=== PATIENT | female | born 1985 | race Caucasian/White ===

== ENCOUNTER 2020-06-28 10:15 | Emergency (ER) | payer OTHER, SELFPAY ==
[2020-06-28 10:30] VITALS: BP 159/108; PULSE 102; RESP 18; TEMP 37.4; O2SAT 100
--- NOTE | 2020-06-28 10:49 | ED.URI ---
HPI - URI/Sore Throat General Chief Complaint: Upper Respiratory Infection Stated Complaint: sinus infection Source: patient Mode of arrival: ambulatory Limitations: no limitations History of Present Illness HPI Narrative: Patient is a 35-year-old female who presents complaining of sinus pain and pressure x10 days, cough and congestion. Patient has a history of lupus. Patient reports that she is currently taking steroids. She reports trying multiple [id number] medications with limited relief. Patient currently takes daily allergy medication as well. She denies known exposure to Covid, and has no concerns at this time. MD elicited complaint: cough, nasal congestion and sinus pain Related Data Home Medications Medication Instructions Recorded Confirmed azathioprine 50 mg PO DAILY 06/28/20 06/28/20 hydroxychloroquine 200 mg PO BID 06/28/20 06/28/20 levothyroxine 50 mcg PO DAILY 06/28/20 06/28/20 prednisone 10 mg PO DAILY 06/28/20 06/28/20 Allergies Allergy/AdvReac Type Severity Reaction Status Date / Time cephalexin [From Keflex] Allergy Unknown Verified 06/28/20 10:54 codeine Allergy Unknown Verified 06/28/20 10:55 levofloxacin [From Levaquin] Allergy Unknown Verified 06/28/20 10:55 tramadol Allergy Unknown Verified 06/28/20 10:55 vancomycin Allergy Unknown Verified 06/28/20 10:56 Review of Systems Review of Systems: Narrative: CONSTITUTIONAL: Denies fever, chills, or sweats. EYES: Denies visual changes, redness, or discharge. ENT: Reports rhinorrhea, congestion and facial pressure CARDIOVASCULAR: Denies chest pain, palpitations, or edema. RESPIRATORY: Reports cough, denies dyspnea. GASTROINTESTINAL: Denies abdominal pain, nausea, vomiting, or diarrhea. GENITOURINARY: Denies dysuria or hematuria. SKIN: Denies rash or itching. MUSCULOSKELETAL: Denies back pain, joint pain, or myalgia. NEUROLOGIC: Denies headache, numbness, dizziness, or weakness. PSYCHIATRIC: Denies anxiety or depression. [facility] Past Medical History Medical History (Updated 06/28/20 @ 11:02 by TRISTAN Cruz) Breast mass Hypothyroidism Lupus Surgical History Surgical History (Updated 06/28/20 @ 10:52 by TRISTAN Cruz) H/O bilateral mastectomy Social History Social History (Updated 06/28/20 @ 10:53 by TRISTAN Cruz) Smoking status: Never smoker Substance use: never Living arrangements: with family Occupation/Education: occupation Gender identity (if verbalized by the patient): Female Comments At the time of signature, I have reviewed and agree with nursing past medical, surgical, social, and family history unless otherwise noted. Please see nursing chart for further information. There is no relevant family history pertinent to the presenting complaint. Exam Narrative: Exam Narrative: GENERAL: Well-appearing, well-nourished, and in no acute distress. HEAD: Normocephalic, atraumatic. EYES: EOMI. No redness or drainage. Conjunctiva are normal. ENT: Mucous membranes pink and moist. Nares clear. No rhinorrhea. Frontal and maxillary sinus tenderness with palpation. Throat with mild erythema. Uvula midline. NECK: AROM. Supple. No lymphadenopathy. CHEST: No respiratory distress. Clear to auscultation. HEART: Regular rate and rhythm. No murmur appreciated. Normal peripheral pulses. EXTREMITIES: Normal range of motion. No edema. SKIN: Warm, dry, no rash. NEURO: No focal deficits. Alert and oriented x3. Gait steady. PSYCH: Normal affect. No signs of depression or anxiety. Course Vital Signs Vital signs: Vital Signs Temperature 37.4 C 06/28/20 10:30 Pulse Rate 102 H 06/28/20 10:30 Respiratory Rate 18 06/28/20 10:30 Blood Pressure 159/108 H 06/28/20 10:30 Pulse Oximetry 100 06/28/20 10:30 Temperature 37.4 C 06/28/20 10:30 Pulse Rate 102 H 06/28/20 10:30 Respiratory Rate 18 06/28/20 10:30 Blood Pressure 159/108 H 06/28/20 10:30 Pulse Oximetry 100 06/28/
== END 2020-06-28 11:05 | disposition home or self-care (01) ==
PROVIDERS: Emergency Provider Nurse Practitioner; PCP Internal Medicine
DX: J32.9 Chronic sinusitis, unspecified (principal); J06.9 Acute upper respiratory infection, unspecified; E03.9 Hypothyroidism, unspecified; M32.9 Systemic lupus erythematosus, unspecified; Z90.13 Acquired absence of bilateral breasts and nipples
CPT/HCPCS: 99213; G0463

== ENCOUNTER 2020-07-16 11:55 | Emergency (ER) | payer OTHER, SELFPAY ==
--- NOTE | 2020-07-16 11:59 | ED.NECK ---
HPI - Neck Pain/Injury General Chief Complaint: Neck Pain/Injury Stated Complaint: neck pain Time Seen by Provider: 07/16/20 11:59 Source: patient and RN notes reviewed History of Present Illness HPI Narrative: Patient is a 35-year-old female who presents the urgent care with complaints of right-sided neck pain. Patient states that she had an upper respiratory infection approximately 3 weeks ago and was told to follow-up if she experienced any neck pain . Patient states that the URI has subsided however after sleeping upright on a bunch of pillows, she believes she has a kink in her neck. Patient states that she has been taking ibuprofen and Tylenol without much relief. No other acute complaints. Denies any fevers. No acute distress noted. Patient aware of the plan of care. Some parts of this dictation were generated by voice recognition software and may contain typographical and/or grammatical inaccuracies. Related Data Home Medications Medication Instructions Recorded Confirmed azathioprine 50 mg PO DAILY 06/28/20 07/16/20 hydroxychloroquine 200 mg PO BID 06/28/20 07/16/20 celecoxib 200 mg PO BID 07/16/20 07/16/20 levothyroxine [Synthroid] 50 mcg PO DAILY 07/16/20 07/16/20 Allergies Allergy/AdvReac Type Severity Reaction Status Date / Time cephalexin [From Keflex] Allergy Severe Rash Verified 07/16/20 12:15 codeine Allergy Severe Rash Verified 07/16/20 12:15 levofloxacin [From Levaquin] Allergy Severe Rash Verified 07/16/20 12:15 vancomycin Allergy Severe Unknown Verified 07/16/20 12:15 tramadol AdvReac Mild Nausea and Verified 07/16/20 12:15 Vomiting Review of Systems Review of Systems: Narrative: CONSTITUTIONAL: Denies fever, chills, or sweats. EYES: Denies visual changes, redness, or discharge. ENT: Denies rhinorrhea, congestion, sore throat, or otalgia. CARDIOVASCULAR: Denies chest pain, palpitations, or edema. RESPIRATORY: Denies cough or dyspnea. GASTROINTESTINAL: Denies abdominal pain, nausea, vomiting, or diarrhea. GENITOURINARY: Denies dysuria or hematuria. SKIN: Denies rash or itching. MUSCULOSKELETAL: Reports of right-sided neck pain NEUROLOGIC: Denies headache, numbness, or weakness. All other systems reviewed are negative, except as documented in HPI. [facility] Past Medical History Medical History (Updated 07/16/20 @ 12:28 by TRISTAN Ha) Breast mass Hypothyroidism Lupus Surgical History Surgical History (Updated 06/28/20 @ 10:52 by TRISTAN Cruz) H/O bilateral mastectomy Social History Social History (Updated 06/28/20 @ 10:53 by TRISTAN Cruz) Smoking status: Never smoker Substance use: never Gender identity (if verbalized by the patient): Female Comments At the time of my signature, I reviewed and agree with the nursing past medical, surgical, social, and family history. There is no relevant family history pertinent to the patient complaint. Exam Narrative: Exam Narrative: GENERAL: This is a well-nourished, well-developed patient, in no apparent distress. HEAD: normocephalic, atraumatic. EYES: PERRL. Sclera clear/white. Vision is grossly intact. EARS: External ears normal NOSE: External nose normal with no obvious nasal discharge, nares without redness, no rhinorrhea. THROAT: Mucous membranes moist NECK: Mild right-sided cervical tenderness. Left flexion exacerbates pain. Normal head lift, chin tuck, right flexion. Non-tender without lymphadenopathy, masses or thyromegaly. SKIN: warm, intact with no suspicious lesions or rash, good texture and turgor. NEURO: awake, alert, and oriented to person, place and time. There were no obvious focal neurologic abnormalities. EXTREMITIES: No clubbing, cyanosis, or edema. Course Vital Signs Vital signs: Vital Signs Temperature 99.2 F 07/16/20 12:01 Pulse Rate 92 07/16/20 12:01 Respiratory Rate 20 07/16/20 12:01 Blood Pressure 161/106 H 07/16/20 12:01 Pulse Oximetry 100 07/16/20 12:01
[2020-07-16 12:01] VITALS: BP 161/106; PULSE 92; RESP 20; TEMP 37.3; O2SAT 100
[2020-07-16 12:30] VITALS: BP 162/102
== END 2020-07-16 12:30 | disposition home or self-care (01) ==
PROVIDERS: Emergency Provider Nurse Practitioner Family
DX: S16.1XXA Strain of muscle, fascia and tendon at neck level, initial encounter (principal); X58.XXXA Exposure to other specified factors, initial encounter; E03.9 Hypothyroidism, unspecified; Z90.13 Acquired absence of bilateral breasts and nipples; M32.9 Systemic lupus erythematosus, unspecified
CPT/HCPCS: 99213; G0463

== ENCOUNTER 2020-08-09 11:07 | Emergency (ER) | payer OTHER, SELFPAY ==
[2020-08-09 11:14] VITALS: BP 152/104; PULSE 78; RESP 16; TEMP 36.9; O2SAT 100
--- NOTE | 2020-08-09 11:32 | ED.URI ---
HPI - URI/Sore Throat General Chief Complaint: Upper Respiratory Infection Stated Complaint: Possible sinus infection Time Seen by Provider: 08/09/20 11:30 Source: patient Mode of arrival: ambulatory Limitations: no limitations History of Present Illness HPI Narrative: Yue Gardner is a 35 yo female with PMH of lupus, hypothyroid, who comes to express care c/o recurrent sinus issues with drainage and cough. States she has green mucus when blowing nose, uses a sinus rinse, Flonase, Zyrtec every morning. 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 Related Data Home Medications Medication Instructions Recorded Confirmed azathioprine 50 mg PO DAILY 06/28/20 08/09/20 hydroxychloroquine 200 mg PO BID 06/28/20 08/09/20 celecoxib 200 mg PO BID 07/16/20 08/09/20 levothyroxine [Synthroid] 50 mcg PO DAILY 07/16/20 08/09/20 Allergies Allergy/AdvReac Type Severity Reaction Status Date / Time cephalexin [From Keflex] Allergy Severe Rash Verified 08/09/20 11:24 codeine Allergy Severe Rash Verified 08/09/20 11:24 levofloxacin [From Levaquin] Allergy Severe Rash Verified 08/09/20 11:24 vancomycin Allergy Severe Unknown Verified 08/09/20 11:24 tramadol AdvReac Mild Nausea and Verified 08/09/20 11:24 Vomiting Review of Systems Review of Systems: Narrative: CONSTITUTIONAL: Denies fever, chills, sweats. EYES: Denies visual changes, redness, discharge. ENT: Has rhinorrhea, congestion, sore throat, no otalgia. CARDIOVASCULAR: Denies chest pain, palpitations, edema. RESPIRATORY: Denies dyspnea, wheezing, dry cough GASTROINTESTINAL: Denies abdominal pain, nausea, vomiting, diarrhea. GENITOURINARY: Denies dysuria, hematuria, abnormal discharge SKIN: Denies rash or itching. NEUROLOGIC: Denies numbness, or focal weakness. PSYCHIATRIC: Denies anxiety or depression. [facility] Past Medical History Medical History Breast mass Chronic disease of ear Hypothyroidism Lupus Surgical History Surgical History H/O bilateral mastectomy Social History Social History Smoking status: Never smoker Substance use: never Gender identity (if verbalized by the patient): Female Comments At time of signature, I agree with nursing past medical, surgical, social and family history. There is no relevant family history pertinent to the presenting complaint. Exam Narrative: Exam Narrative: GENERAL: This is a well-nourished, well-developed patient, in mild distress. HEAD: normocephalic, atraumatic. EYES: Sclera clear/white. Vision is grossly intact. EARS: External ears normal, auditory canals difficult to visualize and without drainage, Hearing grossly intact. NOSE: External nose normal with clear nasal discharge, nares without redness, has rhinorrhea. THROAT: Mucous membranes moist, posterior pharynx erythema- no exudate NECK: Neck supple, non-tender CARDIOVASCULAR: Regular rate and rhythm without murmurs, gallops, or rubs. RESPIRATORY: Clear to auscultation. Breath sounds equal bilaterally. No wheezes, rales, or rhonchi. GASTROINTESTINAL: Abdomen soft, SKIN: warm, intact with no suspicious lesions or rash, good texture and turgor. NEURO: awake, alert, and oriented to person, place and time. There were no obvious focal neurologic abnormalities. Steady gait EXTREMITIES: Normal range of motion. BACK: Nontender without deformity Course Course Emergency Course: [facility] of [facility] issues increased drainage dry cough-refused swab for strep Given Medrol Dosepak and Zithromax recommended the patient follow-up with an
[2020-08-09 11:50] VITALS: BP 140/90
== END 2020-08-09 12:00 | disposition home or self-care (01) ==
PROVIDERS: Emergency Provider Nurse Practitioner; PCP Internal Medicine
DX: J01.10 Acute frontal sinusitis, unspecified (principal); E03.9 Hypothyroidism, unspecified; Z90.13 Acquired absence of bilateral breasts and nipples; Z85.3 Personal history of malignant neoplasm of breast; M32.9 Systemic lupus erythematosus, unspecified
CPT/HCPCS: 99213; G0463

== ENCOUNTER 2020-10-23 16:24 | Emergency (ER) | payer OTHER, SELFPAY ==
[2020-10-23 16:44] VITALS: BP 149/100; PULSE 81; RESP 16; TEMP 37.7; O2SAT 100
--- NOTE | 2020-10-23 16:51 | ED.URI ---
HPI - URI/Sore Throat General Chief Complaint: Upper Respiratory Infection Stated Complaint: Sore Throat Time Seen by Provider: 10/23/20 16:51 Source: patient and family Mode of arrival: ambulatory Limitations: no limitations History of Present Illness HPI Narrative: patient presents with a sore throat. no trouble swallowing no drooling. Patient states her 7-month-old grandchild is COVID-19 positive and she was exposed to the grandchild 3 days ago. Patient states her symptoms started today MD elicited complaint: sore throat Related Data Home Medications Medication Instructions Recorded Confirmed azathioprine 50 mg PO DAILY 06/28/20 10/23/20 hydroxychloroquine 200 mg PO BID 06/28/20 10/23/20 celecoxib 200 mg PO BID 07/16/20 10/23/20 levothyroxine [Synthroid] 50 mcg PO DAILY 07/16/20 10/23/20 prednisone 5 mg PO BID 10/23/20 10/23/20 Allergies Allergy/AdvReac Type Severity Reaction Status Date / Time cephalexin [From Keflex] Allergy Severe Rash Verified 10/23/20 17:19 codeine Allergy Severe Rash Verified 10/23/20 17:19 levofloxacin [From Levaquin] Allergy Severe Rash Verified 10/23/20 17:19 vancomycin Allergy Severe Unknown Verified 10/23/20 17:19 tramadol AdvReac Mild Nausea and Verified 10/23/20 17:19 Vomiting Review of Systems Review of Systems: CONSTITUTIONAL: Denies chills, or sweats. Reports fever and generalized body aches EYES: Denies visual changes, redness, or discharge. ENT: Denies otalgia. Reports nasal congestion runny nose and sore throat CARDIOVASCULAR: Denies chest pain, palpitations, or edema. RESPIRATORY: Denies dyspnea. Reports occasional cough GASTROINTESTINAL: Denies abdominal pain, nausea, vomiting, or diarrhea. GENITOURINARY: Denies dysuria or hematuria. SKIN: Denies rash or itching. MUSCULOSKELETAL: Denies back pain, joint pain, or myalgia. Reports generalized body aches NEUROLOGIC: Denies headache, numbness, or weakness. PSYCHIATRIC: Denies anxiety or depression. [facility] Past Medical History Medical History Breast mass Chronic disease of ear Hypothyroidism Lupus Surgical History Surgical History H/O bilateral mastectomy Social History Social History Smoking status: Never smoker Substance use: never Gender identity (if verbalized by the patient): Female Comments At time of signature, agree with nursing past medical, surgical, social and family history. There is no relevant family history pertinent to the presenting complaint Exam Narrative: The patient is a well-developed, well-nourished in no acute distress. SKIN: Skin is warm and dry without erythema, swelling or exudate. There is good turgor. No tenting. HEAD: Atraumatic. Normocephalic. No temporal or scalp tenderness. EYES: Moist and bright. Sclera and conjunctivae normal. No discharge. PERRLA. Extraocular motions intact. Gross visual acuity intact. EARS: Pinna is normal shape and contour. Clear external auditory canals. TM pearly carlson with good cone of light, no erythema or suppuration. Bilateral cerumen noted no gross hearing deficit. NOSE: pink, moist mucosa with good air movement. Clear rhinorrhea without nasal flaring. Septum midline. Mouth: moist mucous membranes. THROAT; mild erythema noted to posterior oropharynx with moderate postnasal drainage. Without exudate or ulceration.. Uvula midline. Normal movement of soft palate. NECK: Supple and nontender with full range of motion without discomfort. No meningeal signs. LUNGS: Equal and bilateral breath sounds without wheezes, rales or rhonchi. CHEST: The chest wall is without retractions or use of accessory muscles. HEART: Has a regular rate and rhythm without murmur, gallops, click or rub. ABDOMEN: Soft, nontender with positive active bowel sounds. No rebound tenderness. EXTREMITIES: Without cyanosis,
== END 2020-10-23 17:30 | disposition home or self-care (01) ==
PROVIDERS: Emergency Provider Nurse Practitioner Family; PCP Internal Medicine
DX: J02.9 Acute pharyngitis, unspecified (principal); Z20.822 Contact with and (suspected) exposure to COVID-19; E03.9 Hypothyroidism, unspecified; M32.9 Systemic lupus erythematosus, unspecified; Z85.3 Personal history of malignant neoplasm of breast; Z90.11 Acquired absence of right breast and nipple
CPT/HCPCS: 87081; 87880; 99213; G0463

== ENCOUNTER 2021-10-16 10:30 | Emergency (ER) | payer OTHER, SELFPAY ==
[2021-10-16 10:35] VITALS: BP 125/77; PULSE 72; RESP 14; TEMP 36.8; O2SAT 99
--- NOTE | 2021-10-16 10:55 | ED.EAR ---
HPI - Ear Problem General Chief complaint: Ear Stated complaint: Ear Pain/Sinus Pain Time Seen by Provider: 10/16/21 10:55 Source: patient and RN notes reviewed History of Present Illness HPI Narrative: Patient is a 36-year-old female who presents the urgent care with complaints of bilateral ear pain, sinus tender and pressure, facial puffiness, nasal congestion, postnasal drainage. Patient denies any fever, nausea or vomiting. States her symptoms have been persistent since September 23 after she had COVID. Patient states that she does take hydrochloric when for RA and did use nasal spray, DayQuil and NyQuil. No other acute complaints. No acute distress noted. Patient aware of the plan of care. Some parts of this dictation were generated by voice recognition software and may contain typographical and/or grammatical inaccuracies. Related Data Home Medications Medication Instructions Recorded Confirmed levothyroxine 50 mcg tablet 88 mcg PO DAILY 07/16/20 10/16/21 (Synthroid) amlodipine 5 mg tablet 5 mg PO DAILY 10/16/21 10/16/21 citalopram 10 mg tablet 10 mg PO DAILY 10/16/21 10/16/21 clonazepam 0.5 mg tablet 0.25 mg PO HS 10/16/21 10/16/21 losartan 100 1 tablet PO DAILY 10/16/21 10/16/21 mg-hydrochlorothiazide 12.5 mg tablet propranolol 10 mg tablet 10 mg PO Q12H 10/16/21 10/16/21 trazodone 50 mg tablet 50 mg PO HS 10/16/21 10/16/21 Allergies Allergy/AdvReac Type Severity Reaction Status Date / Time cephalexin [From Keflex] Allergy Severe Rash Verified 10/16/21 10:43 codeine Allergy Severe Rash Verified 10/16/21 10:43 levofloxacin [From Levaquin] Allergy Severe Rash Verified 10/16/21 10:43 vancomycin Allergy Severe Rash Verified 10/16/21 10:43 tramadol AdvReac Mild Nausea and Verified 10/16/21 10:43 Vomiting Review of Systems Review of Systems: CONSTITUTIONAL: Denies fever, chills, or sweats. EYES: Denies visual changes, redness, or discharge. ENT: Reports of sinus pressure, tenderness, bilateral otalgia, postnasal drainage CARDIOVASCULAR: Denies chest pain, palpitations, or edema. RESPIRATORY: Denies cough or dyspnea. GASTROINTESTINAL: Denies abdominal pain, nausea, vomiting, or diarrhea. GENITOURINARY: Denies dysuria or hematuria. SKIN: Denies rash or itching. MUSCULOSKELETAL: Denies back pain, joint pain, or myalgia. NEUROLOGIC: Denies headache, numbness, or weakness. All other systems reviewed are negative, except as documented in HPI. [facility] Past Medical History Medical History Breast mass Chronic disease of ear Hypothyroidism Lupus Surgical History Surgical History H/O bilateral mastectomy Social History Social History Smoking status: Never smoker Substance use: never Gender identity (if verbalized by the patient): Female Comments At the time of my signature, I reviewed and agree with the nursing past medical, surgical, social, and family history. There is no relevant family history pertinent to the patient complaint. Exam Narrative: GENERAL: This is a well-nourished, well-developed patient, in no apparent distress. HEAD: normocephalic, atraumatic. Moderate frontal and maxillary sinus pressure and tenderness EYES: PERRL. Sclera clear/white. Vision is grossly intact. EARS: External ears normal, auditory canals clear and without drainage, mild bilateral effusions without otitis. TMs normal without perforation. Hearing grossly intact. NOSE: External nose normal with no obvious nasal discharge, nares without redness, no rhinorrhea. THROAT: Mucous membranes moist, posterior pharynx clear. Moderate postnasal drainage NECK: Neck supple, mild bilateral submandibular nontender lymphadenopathy CARDIOVASCULAR: Regular rate and rhythm without murmurs, gallops, or rubs. RESPIRATORY: Clear to auscultation. Breath sounds equal bilaterally
== END 2021-10-16 11:20 | disposition home or self-care (01) ==
PROVIDERS: Emergency Provider Nurse Practitioner Family
DX: J32.1 Chronic frontal sinusitis (principal); E03.9 Hypothyroidism, unspecified; M32.9 Systemic lupus erythematosus, unspecified; Z85.3 Personal history of malignant neoplasm of breast; Z90.13 Acquired absence of bilateral breasts and nipples; Z86.16 Personal history of COVID-19
CPT/HCPCS: 99213; G0463

== ENCOUNTER 2021-12-11 09:47 | Emergency (ER) | payer OTHER, SELFPAY ==
--- NOTE | 2021-12-11 09:51 | ED.URI ---
HPI - URI/Sore Throat General Chief Complaint: Upper Respiratory Infection Stated Complaint: cough and drainage Time Seen by Provider: 12/11/21 10:04 Source: patient Mode of arrival: ambulatory Limitations: no limitations History of Present Illness HPI Narrative: Ms. Gardner is a 36-year-old female patient presenting to the clinic today with complaints of cough and green foul tasting nasal drainage x2 weeks. She reports she gets sinus infections 1-2 times per year. She denies any fever or chills but does have sinus pressure/headache MD elicited complaint: cough and nasal congestion Related Data Home Medications Medication Instructions Recorded Confirmed levothyroxine 50 mcg tablet 88 mcg PO DAILY 07/16/20 12/11/21 (Synthroid) amlodipine 5 mg tablet 5 mg PO DAILY 10/16/21 12/11/21 citalopram 10 mg tablet 10 mg PO DAILY 10/16/21 12/11/21 clonazepam 0.5 mg tablet 0.25 mg PO HS 10/16/21 12/11/21 losartan 100 1 tablet PO DAILY 10/16/21 12/11/21 mg-hydrochlorothiazide 12.5 mg tablet propranolol 10 mg tablet 10 mg PO Q12H 10/16/21 12/11/21 trazodone 50 mg tablet 50 mg PO HS 10/16/21 12/11/21 Allergies Allergy/AdvReac Type Severity Reaction Status Date / Time cephalexin [From Keflex] Allergy Severe Rash Verified 12/11/21 10:05 codeine Allergy Severe Rash Verified 12/11/21 10:05 levofloxacin [From Levaquin] Allergy Severe Rash Verified 12/11/21 10:05 vancomycin Allergy Severe Rash Verified 12/11/21 10:05 tramadol AdvReac Mild Nausea and Verified 12/11/21 10:05 Vomiting Review of Systems Review of Systems: Pertinent positives per HPI. Patient denies any fever, chills, rash, headache, visual changes, dizziness, shortness of breath, chest pain, palpitations, nausea, vomiting, diarrhea, constipation, abdominal pain, or any urinary issues. [facility] Past Medical History Medical History Breast mass Chronic disease of ear Hypothyroidism Lupus Surgical History Surgical History H/O bilateral mastectomy Social History Social History Smoking status: Never smoker Substance use: never Gender identity (if verbalized by the patient): Female Comments At the time of my signature, I reviewed and agree with the nursing past medical, surgical, social, and family history. There is no relevant family history pertinent to the patient complaint. Exam Narrative: General: Well-developed, well nourished, in no apparent distress Head: Normocephalic, atraumatic Eyes: Pupils equally round and reactive to light bilaterally, EOM intact, sclera and conjunctive clear, no discharge, lids normal Ears: TMs intact and clear, ear canals clear, no drainage, grossly hearing normal. Nose: Nares patent, green nasal discharge, severe inflammation, maxillary and frontal sinus tenderness. Mouth: Oral pharynx without lesions or masses, good dentition, MMM. Postnasal drip Neck: Supple, trachea midline, no enlargement of anterior or posterior cervical nodes, no thyroid masses or goiter palpable. Cardio: Regular rate and rhythm, s1 and s2 normal, no murmur appreciated. Resp: Clear to auscultation bilaterally, no rhonchi, rales, wheezing or rubs Course Course Emergency Course: Portions of this record may have been created with voice recognition software. Level of Care: Express Care Visit Vital Signs Vital signs: Vital Signs Temperature 37.2 C 12/11/21 09:59 Pulse Rate 81 12/11/21 09:59 Respiratory Rate 16 12/11/21 09:59 Blood Pressure 145/92 H 12/11/21 09:59 Pulse Oximetry 97 12/11/21 09:59 Oxygen Delivery Room Air 12/11/21 09:59 Temperature 37.2 C 12/11/21 09:59 Pulse Rate 81 12/11/21 09:59 Respiratory Rate 16 12/11/21 09:59 Blood Pressure 145/92 H 12/11/21 09:59 Pulse Oximetry 97 12/11/21 09:59 Oxygen Deli
[2021-12-11 09:59] VITALS: BP 145/92; PULSE 81; RESP 16; TEMP 37.2; O2SAT 97
== END 2021-12-11 10:13 | disposition home or self-care (01) ==
PROVIDERS: Emergency Provider Nurse Practitioner Family
DX: J01.90 Acute sinusitis, unspecified (principal); E03.9 Hypothyroidism, unspecified; M32.9 Systemic lupus erythematosus, unspecified; Z85.3 Personal history of malignant neoplasm of breast; Z90.13 Acquired absence of bilateral breasts and nipples
CPT/HCPCS: 99213; G0463

== ENCOUNTER 2023-11-02 08:47 | Emergency (ER) | payer OTHER, SELFPAY ==
[2023-11-02 08:58] VITALS: BP 132/86; PULSE 85; RESP 16; TEMP 37.2; O2SAT 100
--- NOTE | 2023-11-02 09:12 | ED.URI ---
HPI - URI/Sore Throat General Chief Complaint: Upper Respiratory Infection Stated Complaint: Fever/Body Aches/Congestion Time Seen by Provider: 11/02/23 09:12 Source: patient and RN notes reviewed Mode of arrival: ambulatory Limitations: no limitations History of Present Illness HPI Narrative: 38 year old female presented for complaint of headache, body aches, sinus pressure/congestion, sore throat, cough. onset 2 days. States she had fever at onset. Has been taking [id number] severe cold and flu medicine. Denies sob, wheezing, n/v/d. MD elicited complaint: cough Related Data Home Medications Medication Instructions Recorded Confirmed levothyroxine 50 mcg tablet 88 mcg PO DAILY 07/16/20 12/11/21 (Synthroid) amlodipine 5 mg tablet 5 mg PO DAILY 10/16/21 12/11/21 citalopram 10 mg tablet 10 mg PO DAILY 10/16/21 12/11/21 clonazepam 0.5 mg tablet 0.25 mg PO HS 10/16/21 12/11/21 losartan 100 1 tablet PO DAILY 10/16/21 12/11/21 mg-hydrochlorothiazide 12.5 mg tablet propranolol 10 mg tablet 10 mg PO Q12H 10/16/21 12/11/21 trazodone 50 mg tablet 50 mg PO HS 10/16/21 12/11/21 Allergies Allergy/AdvReac Type Severity Reaction Status Date / Time cephalexin [From Keflex] Allergy Severe Rash Verified 12/11/21 10:05 codeine Allergy Severe Rash Verified 12/11/21 10:05 levofloxacin [From Levaquin] Allergy Severe Rash Verified 12/11/21 10:05 vancomycin Allergy Severe Rash Verified 12/11/21 10:05 tramadol AdvReac Mild Nausea and Verified 12/11/21 10:05 Vomiting Review of Systems Review of Systems: CONSTITUTIONAL: Endorses malaise, Denies chills, sweats, fever EYES: Denies visual changes, redness, or discharge ENT: Reports rhinorrhea, congestion, sore throat CARDIOVASCULAR: Denies chest pain, palpitations, edema RESPIRATORY: Reports cough, post nasal drainage. Denies dyspnea GASTROINTESTINAL: Denies abdominal pain, nausea, vomiting, diarrhea SKIN: Denies rash or itching MUSCULOSKELETAL: denies myalgia PMFSH Past Medical History Medical History Breast mass Chronic disease of ear Hypothyroidism Lupus Surgical History Surgical History H/O bilateral mastectomy Social History Social History Smoking status: Never smoker Substance use: never Living arrangements: with family Occupation/Education: occupation Gender identity (if verbalized by the patient): Female Exam Narrative: GENERAL: Mildly Ill-appearing, nontoxic no acute distress. HEAD: Normocephalic EYES: PERRLA, conjunctivae clear ENT: Mucous membranes moist. TMs pearly louis with dull light reflex bilaterally; no tragal tenderness. Oropharynx mildly erythematous without lesions or exudate, no drooling, no hoarseness, no trismus, uvula midline. No tripod positioning, muffled voice, soft palate or pharyngeal wall bulging NECK: Supple. No lymphadenopathy CHEST: Clear to auscultation, breath sounds equal. No wheezing, rhonchi, rales, or stridor. No respiratory distress, speaks in full sentences. HEART: Regular rate and rhythm. No murmur heard. SKIN: Warm, dry, no rash. NEURO: Alert and oriented x3. PSYCH: Normal mood and affect Course Course Emergency Course: Patient is aware of diagnosis, understands and agrees to treatment plan. Anticipatory guidance given. Patient agrees to follow-up as directed and is aware of reasons to seek care at the emergency department. Portions of this record may have been created with voice recognition software Level of Care: Express Care Visit Vital Signs Vital signs: Vital Signs Temperature 98.9 F 11/02/23 08:58 Pulse Rate 85 11/02/23 08:58 Respiratory Rate 16 11/02/23 08:58 Blood Pressure 132/86 11/02/23 08:58 Pulse Oximetry 100 11/02/23 08:58 Oxygen Delivery Room Air 11/02/23 08:58 [place]
[2023-11-02 09:29] LABS: EDINFLUASCREEN Negative; EDINFLUBSCREEN Negative; EDSTREPNEGPOS1 Negative
== END 2023-11-02 09:39 | disposition home or self-care (01) ==
PROVIDERS: Emergency Provider Nurse Practitioner Family
DX: U07.1 COVID-19 (principal); E03.9 Hypothyroidism, unspecified; Z90.13 Acquired absence of bilateral breasts and nipples
CPT/HCPCS: 87081; 87426; 87804; 87880; 99213; G0463

== ENCOUNTER 2024-08-22 10:31 | Emergency (ER) | payer OTHER, SELFPAY ==
[2024-08-22 10:46] VITALS: BP 183/109; PULSE 78; RESP 20; TEMP 36.6; O2SAT 97
--- NOTE | 2024-08-22 10:52 | ED_ITS ---
HPI - URI/Sore Throat General Chief Complaint: Upper Respiratory Infection Stated Complaint: Upper Respiratory Problems Time Seen by Provider: 08/22/24 10:52 Source: patient Mode of arrival: ambulatory Limitations: no limitations History of Present Illness HPI Narrative: 39-year-old female presents with complaint of cough, nasal congestion, runny nose, scratchy throat for 3 days. Afebrile. Reports that her son is sick with similar symptoms. All systems reviewed and negative except as noted above. Related Data Home Medications ?Medication ?Instructions ?Recorded ?Confirmed ?Last Taken ?Type citalopram 10 mg tablet 10 mg PO DAILY 10/16/21 12/11/21 Unknown History clonazepam 0.5 mg tablet 0.25 mg PO HS 10/16/21 12/11/21 Unknown History trazodone 50 mg tablet 50 mg PO HS 10/16/21 12/11/21 Unknown History adalimumab 40 mg/0.4 mL mg subcut 08/22/24 Unknown History subcutaneous pen kit (Humira(CF) Pen) Allergies Allergy/AdvReac Type Severity Reaction Status Date / Time cephalexin (From Keflex) Allergy Severe Rash Verified 12/11/21 10:05 codeine Allergy Severe Rash Verified 12/11/21 10:05 levofloxacin (From Levaquin) Allergy Severe Rash Verified 12/11/21 10:05 vancomycin Allergy Severe Rash Verified 12/11/21 10:05 tramadol AdvReac Mild Nausea and Verified 12/11/21 10:05 Vomiting Review of Systems Review of Systems: CONSTITUTIONAL: Denies fever, chills, or sweats. EYES: Denies visual changes, redness, or discharge. ENT: Reports rhinorrhea, congestion, sore throat. Denies otalgia. CARDIOVASCULAR: Denies chest pain, palpitations, or edema. RESPIRATORY: reports cough. Denies dyspnea. GASTROINTESTINAL: Denies abdominal pain, nausea, vomiting, or diarrhea. GENITOURINARY: Denies dysuria or hematuria. SKIN: Denies rash or itching. MUSCULOSKELETAL: Denies back pain, joint pain, or myalgia. NEUROLOGIC: Denies headache, numbness, or weakness. PSYCHIATRIC: Denies anxiety or depression. All other systems reviewed are negative, except as documented in HPI. [facility] Past Medical History Medical History Breast mass Chronic disease of ear Hypothyroidism Lupus Surgical History Surgical History H/O bilateral mastectomy Social History Social History Smoking status: Never smoker Substance use: never Living arrangements: with family Occupation/Education: occupation Gender identity (if verbalized by the patient): Female Comments At time of signature, agree with nursing past medical, surgical, social and family history. There is no relevant family history pertinent to the presenting complaint. Exam Narrative: GENERAL: This is a well-nourished, well-developed patient, in no apparent distress. HEAD: normocephalic, atraumatic. EYES: PERRL. Sclera clear/white. Vision is grossly intact. EARS: External ears normal, auditory canals clear and without drainage, TMs normal without perforation. Hearing grossly intact. NOSE: External nose normal with no obvious nasal discharge, nares without redness, no rhinorrhea. THROAT: Mucous membranes moist, posterior pharynx clear. NECK: Neck supple, non-tender without lymphadenopathy, masses or thyromegaly. CARDIOVASCULAR: Regular rate and rhythm without murmurs, gallops, or rubs. RESPIRATORY: Clear to auscultation. Breath sounds equal bilaterally. No wheezes, rales, or rhonchi. SKIN: warm, Dry, intact with no suspicious lesions or rash, good texture and turgor. NEURO: awake, alert, and oriented to person, place and time. There were no obvious focal neurologic abnormalities. EXTREMITIES: No joint tenderness, effusion, or edema noted. Course Course Level of Care: Express Care Visit Vital Signs Vital signs: Vital Signs Temperature 36.6 C 08/22/24 10:46 Pulse Rate 78 08/22/24 10:46 Respiratory Rate 20 08/22/24 10:46 Blood Pressure 183/109 H 08/22/24 10:46 Pulse Oximetry 97 08/22/24 10:46 Oxygen Delivery Room Air 08/22/24 10:46 Temperature 36.6 C 08/22/24 10:46 Pulse Rate 78 08/22/24 10:46 Respiratory Rate 20 08/22/24 10:46 Blood Pressure 183/109 H 08/22/24 10:46 Pulse Oximetry 97 08/22/24 10:46 Oxygen Delivery Room Air 08/22/24 10:46 reviewed MDM - URI/Sore Throat MDM Narrative Medical decision making narrative: Patient is well-appearing, nontoxic. Recommend she take [id number] medications to treat viral symptoms. Patient's blood pressure elevated today. Patient states her blood pressure was back to normal so she stopped taking her medications. Has her medications at and will start taking them again. No chest pain or shortness of breath. Will follow-up with primary care physician. Differential Diagnosis Differential diagnosis: Likely upper respiratory infection, sinusitis, viral infection and pharyngitis Discharge Plan Discharge Clinical Impression: Viral upper respiratory tract infection with cough Patient Disposition: Home Condition: Stable Instructions: Upper Respiratory Infection (ED) Additional Instructions: Your symptoms are viral and may last 10-14 days. Taking [id number] medication to treat her symptoms such as DayQuil NyQui l cold and flu. Drink plenty of water and rest. Place cool mist humidifier in bedroom where you sleep. Follow-up with your doctor if symptoms are not improving. Patient Language: Thai Prescriptions: No Action Humira(CF) Pen 40 mg/0.4 mL pen injector kit SUBCUT trazodone 50 mg Tablet 50 mg PO HS citalopram 10 mg Tablet 10 mg PO DAILY clonazepam 0.5 mg Tablet 0.25 mg PO HS Rx Instructions: administer 30 minutes before bedtime Follow-up/Referrals: Milton,Jorge Murphy MD [Primary Care Provider] - Time of Disposition: 11:22
--- OUTSIDE RECORDS SUMMARY | 2024-08-22 11:26 | XMS_ITS | Clinical Summary ---
Author Organization [facility] Address [address] [place] [id number] Care Team Providers Care Assistant Women'S Tennis Coach Name Role Phone Jorge Rose MD Primary Care Provider Atilio Abraham MD Unavailable [phone] Allergies Active Allergy Reactions Criticality Noted Date Comments Codeine Other (See comments) Low 05/15/2019 Serotonin Syndrome Fentanyl Other (See comments) Low 05/15/2019 Serotonin Syndrome Cephalexin Other (See comments) Low 05/15/2019 Red Man Syndrome Levofloxacin Other (See comments) Low 05/15/2019 Red Man Syndrome [place] Swelling High 06/14/2021 Swelling of lips mouth tongue /facial Tramadol Other (See comments) Low 05/15/2019 Serotonin Syndrome Vancomycin Other (See comments) Low 05/15/2019 Red Man Syndrome Medications acetaminophen (TYLENOL ORAL) Take by mouth A ctive hydroxychloroquine (PLAQUENIL) 200 mg tabletIndications: Rheumatoid Arthritis Take 2 tablets (400 mg total) by mouth daily 180 tablet 3 4 11/23/19 25 Active leflunomide (ARAVA) 20 mg tabletIndications: Rheumatoid Arthritis Take 1 tablet (20 mg total) by mouth daily 90 tablet 3 4 11/23/19 25 Active amLODIPine (NORVASC) 5 mg tabletIndications: hypertension Take 1 tablet (5 mg total) by mouth daily Take 1 tablet by mouth daily 90 tablet 1 4 Active losartan-hydroCHLO ROthiazide (HYZAAR) 100-12.5 mg per tabletIndications: Hypertension, essential Take 1 tablet by mouth daily 90 tablet 1 4 Active adalimumab (Humira,CF, Pen) 40 mg/0.4 mL pen injector kitIndications:Rhe umatoid Arthritis Inject 0.4 mL (40 mg total) under the skin every 14 (fourteen) days 2 each 11 5 03/16/19 26 Active levothyroxine (SYNTHROID) 100 mcg tabletIndications: Acquired hypothyroidism Take 1 tablet (100 mcg total) by mouth legal nurse consultant before breakfast Take 1 by mouth legal nurse consultant before breakfast 90 tablet 5 04/15/19 26 Active citalopram (CeleXA) 20 mg tabletIndications: MICHOACANO (generalized anxiety disorder) Take 1 tablet (20 mg total) by mouth daily 90 tablet 1 5 05/10/19 26 Active Active Problems Problem Noted Date Diagnosed Date Seronegative rheumatoid arthritis 11/23/2023 Seasonal allergic rhinitis due to pollen 023 Assessment & Plan (11/05/2022 9:55 PM CDT): Personal interpretation of CT Sinus: no masses, polyps tumors or lesions, left deviated nasal septum with inferior turbinate contact, no mucosal thickening or chronic sinus disease noted Blood allergy testing - call with results Nasal saline spray (Simply saline, [place], [place], [place]) 2 second sprays or 2 squeezes into each nostril while looking down over the sink, do not need to sniff in. Followed by Astelin (azelastine) 2 sprays into each nostril while looking down over the sink, do not sniff in or blow nose after use for at least 30 minutes twice daily Asthma 08/19/2021 Overview (08/19/2021): history of Assessment & Plan (12/22/2022 8:36 PM CDT): HPI: Hx asthma. Does not use inhalers as she is usually well controlled. Has an exacerbation about once in spring and in the fall as she currently is. Not currently wheezing, but has bronchial cough. Plan: consulted Dr. Rose, PCP. He is agreeable to depo-medrol IM as she has had in the past. 40mg IM given in office today. Call if no improvement in symptoms. Hypertension, essential 08/19/2021 Assessment & Plan (05/09/2024 8:56 AM TRADE SPECIALIST): BP Readings from Last 3 Encounters: 05/09/24 136/80 04/14/24 158/91 01/05/24 126/84 - chronic, well controlled - currently on Losartan-HCTZ 100-12.5mg daily and Amlodipine 5 mg daily - monitor BLOOD PRESSURE regularly at home - monitor electrolytes, to send us bp logs in 1-2 weeks - follow low salt diet The current medical regimen is effective; continue present plan and medications. Lab Results Component Value Date POTASSIUM 3.7 04/14/2024 Assessment & Plan (01/05/2024 4:29 PM CDT): BP Readings from Last 3 Encounters: 01/05/24 126/84 12/17/23 133/87 10/28/23 137/86 -chronic, stable -currently taking amlodipine 5 mg, losartan-hydrochlorothiazide 100-12.5 mg daily -patient reports checking blood pressure regularly at home -encourage patient to continue low-sodium diet -continue current treatment plan Assessment & Plan (09/13/2023 10:54 PM CDT): BP Readings from Last 3 Encounters: 09/02/23 (!) 160/110 07/28/23 159/94 02/10/23 144/93 - chronic, worse - had stopped her medications - used to be on Losartan-HCTZ 100-12.5mg daily and Amlodipine 5 mg daily --> restart medications, script provided - monitor BLOOD PRESSURE regularly at home - monitor electrolytes, to send us bp logs in 1-2 weeks - follow low salt diet Lab Results Component Value Date POTASSIUM 4.1 07/28/2023 Assessment & Plan (11/05/2022 10:29 AM CDT): BP Readings from Last 3 Encounters: 11/05/22 134/76 10/13/22 157/79 10/02/22 142/96 - chronic,better controlled but has been without her medication for last 3-4 days, refill provided - currently on Losartan-HCTZ 100-12.5mg daily and Amlodipine 5mg daily - monitor BLOOD PRESSURE regularly at home - monitor electrolytes, to send us bp logs in 1 week - follow low salt diet - continue current therapy Lab Results Component Value Date POTASSIUM 3.8 10/13/2022 Assessment & Plan (09/17/2022 10:58 AM CDT): BP Readings from Last 3 Encounters: 09/17/22 136/94 07/17/22 138/80 04/21/22 (!) 154/110 - chronic,better controlled but has been without her medication for last 3-4 days, refill provided - currently on Losartan-HCTZ 100-12.5mg daily and Amlodipine 5mg daily - monitor BLOOD PRESSURE regularly at home - monitor electrolytes, to send us bp logs in 1 week - follow low salt diet - continue current therapy Lab Results Component Value Date POTASSIUM 3.8 06/27/2021 Assessment & Plan (07/18/2022 8:14 AM CDT): - chronic,better controlled - currently on Losartan-HCTZ 100-12.5mg daily and Amlodipine 5mg daily - monitor BLOOD PRESSURE regularly at home - monitor electrolytes - follow low salt diet - continue current therapy Lab Results Component Value Date POTASSIUM 3.8 06/27/2021 Assessment & Plan (04/21/2022 10:20 AM TRADE SPECIALIST): - chronic, not at goal - had stopped her medications Losartan-HCTZ 100-12.5mg daily and Amlodipine 5mg daily on her own and was recently seen in ED for hypertension, restarted medication, recommend continued use of medications - monitor BLOOD PRESSURE regularly at home - monitor electrolytes - continue current therapy - obtain lab work, order placed Lab Results Component Value Date POTASSIUM 3.8 06/27/2021 Assessment & Plan (10/30/2021 11:53 AM CDT): - chronic, well controlled - currently on Losartan-HCTZ 100-12.5mg daily and Amlodipine 5mg daily - monitor BLOOD PRESSURE regularly at home - monitor electrolytes - continue current therapy Lab Results Component Value Date POTASSIUM 3.8 06/27/2021 Assessment & Plan (09/18/2021 11:17 AM CDT): - recent diagnosis, better controlled - currently on Losartan-HCTZ 100-12.5mg daily and Amlodipine 5mg daily - monitor BLOOD PRESSURE regularly at home - monitor electrolytes - continue current therapy Lab Results Component Value Date POTASSIUM 3.8 06/27/2021 Assessment & Plan (08/22/2021 6:37 AM CDT): - new diagnosis, uncontrolled - recent ED visit with significantly elevated blood pressure with chest pain - chest pain may also be secondary to uncontrolled hypertension, had ECG and troponins in recent ED visit but was not discharged with anti-hypertensive medications - start Losartan-HCTZ 100-12.5mg daily - monitor BP closely at home - f/u up th id in 10 days Assessment & Plan (08/19/2021 12:58 PM CDT): - recent diagnosis, better controlled but not at goal - currently on Losartan-HCTZ 100-12.5mg daily - add Amlodipine 5mg daily - continue current therapy - monitor BLOOD PRESSURE regularly at home - intermittent chest pain that is ongoing Other chest pain 08/19/2021 Assessment & Plan (08/19/2021 1:00 PM CDT): - subacute, occurring intermittently for past 2-3 weeks - at times associated with shortness of breath, non-exertional - seen in ED for chest pain and found to have significantly elevated blood pressure, has Troponin, EKG and CXR with no significant abnormalities - reviewed results - due to ongoing chest pain, recommend Echocardiogram and after that will proceed with stress test S/P total hysterectomy and bilateral salpingo-oo phorectomy 08/07/2021 Assessment & Plan (08/22/2021 5:30 AM CDT): - recently done by her OBGYN for menorrhagia with irregular cycle in 07/05/2021 - s/p ROBOTIC ASSISTED TOTAL LAPAROSCOPIC HYSTERECTOMY BILATERAL SALPINGO OOPHORECTOMY Status post laparoscopic hysterectomy 07/05/2021 Vitamin D deficiency 07/04/2021 Assessment & Plan (09/13/2023 11:02 PM CDT): - Chronic condition, not at goal - noted to have vitamin D deficiency on 06/2021 - most recent Vitamin D level is as shown below - recommend Vitamin D supplementation - 5000IU D3 daily - recheck labs, order placed Lab Results Component Value Date 25HYDROVITD 25 (L) 06/27/2021 Assessment & Plan (08/07/2021 9:52 AM CDT): - recent diagnosis, not at goal - noted to have vitamin D deficiency on 06/2021 - most recent Vitamin D level is as shown below Vitamin D, 25-hydroxy Date Value Ref Range Status 06/27/2021 25 (L) 30 - 80 ng/mL Final - patient is started on Vitamin D supplementation - 5000IU D3 daily - continue current therapy Hypertriglyceridemia 07/04/2021 Assessment & Plan (08/07/2021 9:54 AM CDT): - New diagnosis 06/2021 - Discussed lifestyle management - Not on any medications - Body mass index is 34.67 kg/m . Lab Results Component Value Date TRIG 215 (H) 06/27/2021 Class 1 obesity due to exces s calories with serious comorbidity and body mass index (BMI) of 31.0 to 31.9 in adult 06/12/2021 Assessment & Plan (01/05/2024 4:14 PM CDT): Wt Readings from Last 3 Encounters: 01/05/24 74.8 kg (165 lb) 12/17/23 73.5 kg (162 lb) 10/28/23 73.8 kg (162 lb 12.8 oz) Body mass index is 32.22 kg/m . -Stable, not at goal of <30 bmi -Discussed recommendations for exercise at least 30 minutes moderate to vigorous exercise as tolerated most days of the week. (minimum 150 minutes weekly) -Discussed importance of well-balanced diet Assessment & Plan (09/13/2023 10:57 PM CDT): Wt Readings from Last 3 Encounters: 09/02/23 73.8 kg (162 lb 11.2 oz) 07/28/23 74.8 kg (164 lb 12.8 oz) 02/10/23 75.1 kg (165 lb 9.6 oz) Body mass index is 31.78 kg/m . - chronic condition, not at goal but improved with small weight loss - BMI Follow-up includes: nutrition counseling, exercise counseling and education - has known hypothyroidism on treatment for it - tried Wegovy, trulicity and Contrave but insurance not covering any obesity medications - in past has been on Phentermine - not on any medications currently - continue with lifestyle management Assessment & Plan (12/22/2022 8:37 PM CDT): Improved. She is doing well with phentermine. I will go ahead and renew phentermine for another month. Cautioned to continue to monitor blood pressure at home. F/u with Dr. Rose as scheduled. Assessment & Plan (11/05/2022 10:38 AM CDT): Wt Readings from Last 3 Encounters: 11/05/22 79.8 kg (176 lb) 10/13/22 79.8 kg (176 lb) 10/02/22 80.7 kg (178 lb) Body mass index is 34.37 kg/m . - chronic condition, not at goal - BMI Follow-up includes: nutrition counseling, exercise counseling and education - has known hypothyroidism on treatment for it - stays very active, monitors her diet closely - desires to lose weight, will discuss on next visit on weight loss medications - tried Wegovy, trulicity and Contrave but insurance not covering any obesity medications - has used phentermine in past with success - start Phentermine 30 mg daily, discussed signs to monitor for - follow up in 6 weeks Assessment & Plan (09/17/2022 10:59 AM CDT): Wt Readings from Last 3 Encounters: 09/17/22 80.7 kg (178 lb) 07/17/22 81.2 kg (179 lb) 04/21/22 82.6 kg (182 lb) Body mass index is 34.76 kg/m . - chronic condition, not at goal - BMI Follow-up includes: nutrition counseling, exercise counseling and education - has known hypothyroidism on treatment for it - stays very active, monitors her diet closely - desires to lose weight, will discuss on next visit on weight loss medications - tried Wegovy, trulicity and Contrave but insurance not covering any obesity medications - provided sample ozempic for short term use, will switch to phentermine once better bp control Assessment & Plan (07/18/2022 8:17 AM CDT): Wt Readings from Last 3 Encounters: 07/17/22 81.2 kg (179 lb) 04/21/22 82.6 kg (182 lb) 04/19/22 81.2 kg (179 lb) Body mass index is 34.96 kg/m . - chronic condition, not at goal - BMI Follow-up includes: nutrition counseling, exercise counseling and education - has known hypothyroidism on treatment for it - stays very active, monitors her diet closely - desires to lose weight, will discuss on next visit on weight loss medications - I have asked her to check for coverage of wegovy by her insurance Assessment & Plan (04/21/2022 10:18 AM TRADE SPECIALIST): Wt Readings from Last 3 Encounters: 04/19/22 81.2 kg (179 lb) 01/09/22 82.6 kg (182 lb) 10/30/21 80.1 kg (176 lb 9.6 oz) There is no height or weight on file to calculate BMI. - chronic condition, not at goal - BMI Follow-up includes: nutrition counseling, exercise counseling and education - has known hypothyroidism on treatment for it Assessment & Plan (01/06/2022 2:05 PM CDT): HPI: Condition is stable A&P: Discussed/ordered labs, encouraged healthy, low carbohydrate lifestyle and at least 150min/week of exercise Assessment & Plan (09/18/2021 11:17 AM CDT): Wt Readings from Last 3 Encounters: 09/18/21 79.4 kg (175 lb) 08/19/21 78.3 kg (172 lb 11.2 oz) 08/08/21 78.7 kg (173 lb 6.4 oz) Body mass index is 34.18 kg/m . - chronic condition, not at goal - BMI Follow-up includes: nutrition counseling, exercise counseling and education - significant weight gain over past 2 years - noted to have hypothyroidism Assessment & Plan (08/07/2021 9:54 AM CDT): Wt Readings from Last 3 Encounters: 08/07/21 79.8 kg (176 lb 0.2 oz) 06/12/21 80.5 kg (177 lb 8 oz) 05/15/19 62.6 kg (138 lb) Body mass index is 34.37 kg/m . - chronic condition, not at goal - BMI Follow-up includes: nutrition counseling, exercise counseling and education - significant weight gain over past 2 years - noted to have hypothyroidism Assessment & Plan (06/12/2021 9:12 AM CDT): Wt Readings from Last 3 Encounters: 06/12/21 80.5 kg (177 lb 8 oz) 05/15/19 62.6 kg (138 lb) Body mass index is 34.67 kg/m . - chronic condition, not at goal - BMI Follow-up includes: nutrition counseling, exercise counseling and education provided - significant weight gain over past 2 years - noted to have hypothyroidism - will check labs as well Acquired hypothyroidism 06/12/2021 Assessment & Plan (05/09/2024 8:57 AM TRADE SPECIALIST): - chronic, not at goal - used to be on Levothyroxine 100 mcg - recently increased from 88 mcg dialy - no hx of radiation, or surgery of thyroid - most recent labs as shown below - recheck labs, recheck in 4 weeks, order placed Lab Results Component Value Date TSH 30.80 (H) 04/14/2024 Lab Results Component Value Date FREET4 0.56 (L) 04/14/2024 FREET4 0.89 (L) 12/04/2023 FREET4 1.04 09/18/2021 Assessment & Plan (01/05/2024 4:30 PM CDT): Lab Results Component Value Date TSH 9.03 (H) 12/04/2023 -chronic, suboptimally controlled -patient currently takes Synthroid 88 mcg daily which she states she restarted 2-3 weeks ago after not requiring thyroid medicine for close to 1 year -most recent TSH elevated -will repeat lab work in 1 month -continue current treatment plan Assessment & Plan (09/13/2023 10:56 PM CDT): - chronic, not at goal/uncontrolled - used to be on Levothyroxine 88mcg daily --> has been off her medications - no hx of radiation, or surgery of thyroid - most recent labs as shown below - recheck labs, order placed and will determine dose to restart her medication on Lab Results Component Value Date TSH 6.78 (H) 09/18/2021 Lab Results Component Value Date FREET4 1.04 09/18/2021 Assessment & Plan (11/05/2022 10:39 AM CDT): - chronic, controlled - on last visit restarted medication after she had been off her Levothyroixine 88mcg daily - no hx of radiation, or surgery of thyroid - most recent labs as shown below - check labs, order placed in past which will need to be done but has not been done, reminder provided Lab Results Component Value Date TSH 6.78 (H) 09/18/2021 Lab Results Component Value Date FREET4 1.04 09/18/2021 Assessment & Plan (09/17/2022 10:55 AM CDT): - chronic, controlled - on last visit restarted medication after she had been off her Levothyroixine 88mcg daily - no hx of radiation, or surgery of thyroid - most recent labs as shown below - check labs, order placed in past which will need to be done Lab Results Component Value Date TSH 6.78 (H) 09/18/2021 Assessment & Plan (07/18/2022 8:12 AM CDT): - chronic, unknwon status - on last visit restarted medication after she had been off her Levothyroixine 88mcg daily - no hx of radiation, or surgery of thyroid - most recent labs as shown below - check labs, order placed Lab Results Component Value Date TSH 6.78 (H) 09/18/2021 Assessment & Plan (05/04/2022 5:26 PM TRADE SPECIALIST): - chronic, stable - had been off her Levothyroixine 88mcg daily --> restart medication - no hx of radiation, or surgery of thyroid - most recent labs as shown below - check labs again, order placed Lab Results Component Value Date TSH 6.78 (H) 09/18/2021 Assessment & Plan (09/18/2021 11:42 AM CDT): - chronic, stable - currently on Levothyroixine 88mcg daily - noted after lot of weight gain initially - no hx of radiation, surgery for thyroid - please do lab work ordered on last visit to follow up on elevated TSH with normal Free T4, will do lab today Lab Results Component Value Date TSH 2.12 06/27/2021 Assessment & Plan (08/19/2021 12:57 PM CDT): - chronic, stable - currently on Levothyroixine 88mcg daily - noted after lot of weight gain initially - no hx of radiation, surgery for thyroid - continue current medication - recheck labs, order placed Lab Results Component Value Date TSH 2.12 06/27/2021 Assessment & Plan (08/07/2021 9:30 AM CDT): - chronic, stable - recently up titrated to 88mcg daily - noted after lot of weitgh gain - no hx of radiation, surgery for thyroid - will check labs - continue current medication Lab Results Component Value Date TSH 2.12 06/27/2021 Assessment & Plan (06/12/2021 9:12 AM CDT): - chronic, stable - recently up titrated to 88mcg daily - noted after lot of weitgh gain - no hx of radiation, surgery for thyroid - will check labs - continue current medication No results found for: TSH Rheumatoid arthritis of [facility] with negative rheumatoid factor 06/12/2021 Overview (05/09/2024): Follows with rheumathology Assessment & Plan (05/09/2024 8:57 AM TRADE SPECIALIST): - chronic, not at goal - being managed by Rheumatology Dr. Abraham - currently on leflunomide and hydroxychloroquine - has been on Humira for 3-4 months, still has stiffness and swelling in joints - has prednisone for use as needed - defer management to rheumathology, has f/u with rheumathology in few months Assessment & Plan (09/13/2023 10:59 PM CDT): - chronic, being managed by Rheumatology Dr. Abraham - currently on leflunomide and hydroxychloroquine - defer management to rheumathology Assessment & Plan (07/18/2022 8:15 AM CDT): - chronic, not at goal but improved - diagnosed over 5 years ago - was off medications but recently started medications after being off of them for some time - has maternal history of Lupus, has personal concern for Lupus - currently on Celebrex 200 mg daily PRN and also has prednisone for use for flare ups - back on Plaquenil and Arava and also on Imuran per rheumathology - used to have knees and hand pain, reports hand swelling, wrist pain and knuckles - follows with Dr. Ramos - her road driver, - recommend annual eye exams while on Plaquenil - continue current management Assessment & Plan (10/30/2021 1:12 PM CDT): - chronic, stable - diagnosed over 5 years ago - has maternal history of Lupus, has personal concern for Lupus - currently on Celebrex 200 mg daily PRN - no longer taking Plaquenil 400 mg daily, had to come off the medication for her hysterectomy but has been feeling better and has not resumed taking the medication - used to have knees and hand pain, reports hand swelling, wrist pain and knuckles - follows with Dr. Ramos - her road driver, recommend she discuss medication with me - gets annual eye exams while on Plaquenil - Labs on 06/2021 - negative for RF, CCP Ab, CRP or ESR elevation, LIAM non- reactive - continue current management Assessment & Plan (08/22/2021 5:32 AM CDT): - chronic, diagnosed over 5 years ago - has maternal history of Lupus, has personal concern for Lupus - currently on Celebrex 200 mg BID, - no longer taking Plaquenil 400 mg daily, had to come off the medication for her hysterectomy but has been feeling better and has not resumed taking the medication - used to have knees and hand pain, reports hand swelling, wrist pain and knuckles - follows with Dr. Ramos - her road driver, recommend she discuss medication with me - gets annual eye exams while on Plaquenil - Labs on 06/2021 - negative for RF, CCP Ab, CRP or ESR elevation, LIAM non- reactive Assessment & Plan (06/12/2021 11:21 AM CDT): - chronic, diagnosed over 5 years ago - has maternal history of Lupus, has personal concern for Lupus - currently on Celebrex 200 mg BID, Plaquenil 400 mg daily - has knees and hand pain, reports hand swelling, wrist pain and knuckles - will review records from Dr. Ramos - her road driver - ordered some preliminary labs to review - gets annual eye exams Non-seasonal allergic rhinitis 06/12/2021 Assessment & Plan (06/12/2021 11:30 AM CDT): - recurrent condition, acute - currently on Flonase and Zyrtec on a daily basis - she has seen ENT before for nasal issues and been told to do Rhinoplasty - gets quarterly issues and used to get steroid injections Family history of breast cancer 06/12/2021 Assessment & Plan (06/12/2021 11:23 AM CDT): - s/p bilateral mastectomy with reconstruction in 2010 - strong family hx of breast cancer - Maternal mother - Breast cancer - Maternal grandmother - breast cancer - Multiple maternal aunts also had breast cancer - she had a benign breast tumors but was concerned along with some lymph node removal Primary insomnia 06/12/2021 Assessment & Plan (07/17/2022 12:04 PM CDT): - chronic issue, well controlled - long history of sleep initiation and maintenance problem - no mental health issue, no chronic pain affecting this - she has tried Trazodone and Amitriptyline before as well - no longer using OTC Benadryl 100 mg nightly with good response - currently on Flexeril 5 mg nightly via Rheumathology - continue current therapy Assessment & Plan (05/04/2022 5:24 PM TRADE SPECIALIST): - chronic issue, improved control - long history of sleep initiation and maintenance problem - no mental health issue, no chronic pain affecting this - used to use flexeril at night and later on has also used Benadryl at night with suboptimal response, has tried Trazodone and Amitriptyline before as well - currently on OTC Benadryl 100 mg nightly with good response - continue current therapy Assessment & Plan (10/30/2021 11:54 AM CDT): - chronic issue, improved control - long history of sleep initiation and maintenance problem, see note for anxiety - anxiety is well controlled so no longer having insomnia - tried Amitriptyline without success - continue current management Assessment & Plan (09/18/2021 11:43 AM CDT): - chronic issue, improved control - long history of sleep initiation and maintenance problem - no mental health issue, no chronic pain affecting this - used to use flexeril at night and later on has also used Benadryl at night with suboptimal response - tried Amitriptyline without success - currently on Trazodone 50-100 mg nightly with good response - continue current therapy Assessment & Plan (08/07/2021 9:53 AM CDT): - chronic issue, not well controlled - long history of sleep initiation and maintenance problem - no mental health issue, no chronic pain affecting this - used to use flexeril at night and later on has also used Benadryl at night with suboptimal response - start Amitriptyline 102- mg nighty without benefit - discontinue - start Trazodone 50mg nightly, script sent in Assessment & Plan (06/12/2021 11:20 AM CDT): - chronic issue, not well controlled - long history of sleep initiation and maintenance problem - no mental health issue, no chronic pain affecting this - used to use flexeril at night and later on has also used Benadryl at night with suboptimal response - start Amitriptyline 10 mg nighty and increase to 20 mg nighty as tolerated Preventative health care 06/12/2021 Assessment & Plan (09/13/2023 10:56 PM CDT): - reviewed chronic health conditions - addressed acute concern - hypertension and anxiety which are chronic conditions that are worse - up to date with regular dental cleaning and care - up to date with cervical cancer screening - s/p bilateral mastectomy with reconstruction - see other labs and ordes palced in this encounter Assessment & Plan (06/12/2021 11:19 AM CDT): - reviewed chronic health conditions - addressed acute concern with nasal congestion - leads a healthy active lifestyle and healthy nutrition - no acute mental health condition affecting day to day life - up to date with regular dental cleaning and care - up to date with cervical cancer screening - s/p bilateral mastectomy with reconstruction - see other labs and ordes palced in this encounter Positive LIAM (antinuclear antibody) 07/30/2018 MICHOACANO (generalized anxiety disorder) 07/28/2018 Assessment & Plan (05/09/2024 8:58 AM TRADE SPECIALIST): - chronic, not at goal, persistent symptoms - no ongoing depression - currently on Citalopram 10 mg daily Lab Results Component Value Date TSH 30.80 (H) 04/14/2024 Assessment & Plan (09/13/2023 10:55 PM CDT): - chronic, not at goal/worse, had stopped medications - no ongoing depression - used to be on Citalopram 20 mg daily and has Propranolol 10 mg BID PRN --> restart Citalopram at 10 mg daily, script provided Lab Results Component Value Date TSH 6.78 (H) 09/18/2021 Assessment & Plan (11/05/2022 10:25 AM CDT): - chronic, controlled/stable - no ongoing depression - currently on Citalopram 20 mg daily and has Propranolol 10 mg BID PRN - continue with current management Lab Results Component Value Date TSH 6.78 (H) 09/18/2021 Assessment & Plan (09/17/2022 10:57 AM CDT): - chronic, controlled/stable - no ongoing depression - currently on Citalopram 20 mg daily and has Propranolol 10 mg BID PRN - continue with current management Lab Results Component Value Date TSH 6.78 (H) 09/18/2021 Assessment & Plan (07/18/2022 8:13 AM CDT): - chronic, controlled/stable - no ongoing depression - currently on Citalopram 20 mg daily and has Propranolol 10 mg BID PRN, citalopram 20 mg daily and Clonazepam 0.5 mg daily PRN only which she does not use most of the time - continue with current management Lab Results Component Value Date TSH 6.78 (H) 09/18/2021 Assessment & Plan (05/04/2022 5:23 PM TRADE SPECIALIST): - chronic, not well controlled - no ongoing depression - had stopped her medications which will be restarted - restart Propranolol 10 mg BID PRN, citalopram 20 mg daily and Clonazepam 0.5 mg daily PRN only - continue with current management Lab Results Component Value Date TSH 6.78 (H) 09/18/2021 Assessment & Plan (10/30/2021 1:12 PM CDT): - chronic, well controlled - no ongoing depression - currently on Propranolol 10 mg BID PRN - continue with Clonazepam 0.5mg daily PRN only, refill provided - Currently on Citalopram 20 mg daily - she tried several medication in the ast - she does not recall them - continue with current management Assessment & Plan (09/18/2021 11:44 AM CDT): - chronic, better controlled but not at goal - no ongoing depression - currently on Propranolol 20mg TID PRN - continue with Clonazepam 0.5mg daily PRN only, refill provided - start Citalopram 20 mg daily, was discussed on last visit but not started, taper up script sent in - she tried several medication in the ast - she does not recall them - she was doing well so was not on any medications - she managed with coping mechanisms - she has started exercising again, recommend counseling support - continue with current management with changed as made above Assessment & Plan (08/22/2021 6:31 AM CDT): - chronic condition, worse - has had anxiety before but had opted to manage on her own without medications - start Propranolol 10 mg TID PRN - new hypertension diagnosis also not helping, see other plan - f/u with me in 10 days Lab Results Component Value Date TSH 2.12 06/27/2021 Assessment & Plan (08/19/2021 12:58 PM CDT): - chronic, not well controlled - currently on Propranolol 10mg TID PRN --> increase to 20mg TID PRN - start Citalopram 20 mg daily - start Clonazepam 0.5mg daily PRN only, sent in 15 tablets - discussed as rescue medication - she tried several medication in the ast - she does not recall them - she was doing well so was not on any medications - she managed with coping mechanisms - start Celexa 20mg daily, script sent in Gluten intolerance 06/09/2016 Resolved Problems Problem Noted Date Diagnosed Date Resolved Date Acute nasopharyngitis 06/12/20212022 Assessment & Plan (01/06/2022 2:08 PM CDT): Discussed environmental controls No smoking around patient, no animals in bedroom, keep windows closed, no hanging clothes on the line Take zyrtec/claritin/allgera in the am Saline rinse in the am astelin nasal spray 1 spray each nostril, followed by a baby sniff Wait about 10 min, then Flonase 1 spray each nostril, aim away from cartilage, spray once-baby sniff, switch to the other nostril and repeat. Saline rinse about 15 min before bed astelin nasal spray 1 spray each nostril, followed by a baby sniff wait about 10 min then Flonase 1 spray each nostril, aim away from cartilage, spray once-baby sniff, switch to the other nostril and repeat. If working or playing outside, may need to do saline rinses when coming in and change clothes right away You do not look infectious, you do not need antibiotic. No steroid needed. Flu a, b, strep and covid negative Assessment & Plan (06/12/2021 11:26 AM CDT): - recurrent condition, acute - currently on Flonase and Zyrtec on a daily basis - she has seen ENT before for nasal issues and been told to do Rhinoplasty - gets quarterly issues and used to get steroid injections Encounters Date Type Department Care Team Description 07/14/2024 1:30 PM CDT Office Visit [facility] Rheumatology [address] [place] [address] [address] [place] [address] Inflammatory arthritis (Primary Dx); High risk medication use; Class 1 obesity due to excess calories with serious comorbidity and body mass index (BMI) of 31.0 to 31.9 in adult from Last 3 Months Immunizations Immunization Administration Dates Next Due Influenza, Unspecified 01/05/2024(Deferr ed: Patient Refused),12/22/2022(Deferred: Patient Refused - declined.),12/07/2020(Deferred: Patient Refused),12/08/2019(Deferred: Patient Refused) PPD TEST 10/30/2021 Pneumococcal Polysaccharide PPV23 10/25/2018 Tdap 10/07/2016 Surgical History Surgery Date Site/Laterality Comments COMPLETE MASTECTOMY W/ SENTI JOSEFINA NODE BIOPSY 03/09/2010 - 03/08/2011 Bilateral BREAST RECONSTRUCTION 03/09/2010 - 03/08/2011 Bilateral COCCYX FRACTURE SURGERY LAPAROSCOPIC TOTAL HYSTERECTOMY 07/05/2021 Bilateral Medical History Medical History Date Comments Anxiety Obesity Hypertension Scleroderma (HCC) Family History Medical History Relation Name Comments No Known Problems Brother Leukemia Father Breast cancer Mother Diabetes Mother Heart attack Mother Lupus Mother No Known Problems Sister psoriatic arthritis Son Relation Name Status Comments Brother Alive Father Other Mother Alive Sister Alive Son Alive Social History Tobacco Use Types Packs/Day Years Used Date Smoking Tobacco: Never Passive Smoke Exposure: Never Smokeless Tobacco: Never Tobacco Cessation:Counseling Given: Not Answered Alcohol Use Standard Drinks/Week Comments Yes 0 (1 standard drink = 0.6 oz pur e alcohol) [facility] Utilities Answer Date Recorded In the past 12 months has [employer], oil, or water [employer] threatened to shut off services in your home? No 07/14/2024 Social Connection and Isolat ion Panel [NHANES] Answer Date Recorded In a typical week, how many times do you talk on the phone with family, friends, or neighbors? More than three times a week 07/14/2024 How often do you get togethe r with friends or relatives? Twice a week 07/14/2024 How often do you attend chur ch or hindu services? More than 4 times per year 07/14/2024 Do you belong to any clubs o r organizations such as congregational groups, unions, fraternal or athletic groups, or school groups? Yes 07/14/2024 How often do you attend meet ings of the clubs or organizations you belong to? More than 4 times per year 07/14/2024 Are you , , di vorced, , never , or living with a partner? 07/14/2024 AUDIT-C Answer Date Recorded Q1: How often do you have a drink containing alcohol? Never 05/09/2024 Q2: How many drinks containi ng alcohol do you have on a typical day when you are drinking? Patient does not drink Q3: How often do you have si x or more drinks on one occasion? Never 05/09/2024 Overall Financial Resource Strain (CARDIA) Answe r Date Recorded How hard is it for you to pa y for the very basics like food, housing, medical care, and heating? Not hard at all 07/14/2024 PHQ-2 Answer Date Recorded Patient Health Questionnaire-2 Score 2 07/14/2024 [facility] - Occupational Stress Questionnaire Answer Date Recorded Do you feel stress - tense, restless, nervous, or anxious, or unable to sleep at night because your mind is troubled all the time - these days? To some extent 07/14/2024 Exercise Vital Sign Answer Date Recorde d On average, how many days pe r week do you engage in moderate to strenuous exercise (like a brisk walk)? 2 days 07/14/2024 On average, how many minutes do you engage in exercise at this level? 40 min 07/14/2024 Hunger Vital Sign Answer Date Recorded Within the past 12 months, y ou worried that your food would run out before you got the money to buy more. Never true 07/15/19 25 Within the past 12 months, t he food you bought just didn't last and you didn't have money to get more. Never true 07/14/2024 PRAPARE - Transportation Answer Date Re corded In the past 12 months, has l ack of transportation kept you from medical appointments or from getting medications? No 10/2024 In the past 12 months, has l ack of transportation kept you from meetings, work, or from getting things needed for daily living? No 07/14/2024 Housing Stability Vital Sign Answer Mark e Recorded In the last 12 months, was t here a time when you were not able to pay the mortgage or rent on time? No 02/10/2023 In the last 12 months, how many places have you lived? 1 02/10/2023 In the last 12 months, was t here a time when you did not have a steady place to sleep or slept in a half-way (including now)? No 02/10/2023 Personal Safety Answer Date Recorded Getting School Help Needed Denies 04/12 Comments No Sex and Gender Information Value Date Recorded Sex Assigned at Not on file Legal Sex Female 10:17 AM CDT Gender Identity Not on file Sexual Orientation Not on file Obstetrics History Last Filed Vital Signs Vital Sign Reading Time Taken Comments Blood Pressure 126/76 07/14/2024 1:17 PM CDT Pulse 86 07/14/2024 1:17 PM CDT Temperature 36.8 C (98.3 F) 07/14/2024 1:17 PM CDT Respiratory Rate 16 05/09/2024 8:38 AM TRADE SPECIALIST Oxygen Saturation 100% 07/14/2024 1:17 PM CDT Inhaled Oxygen Concentration - - Weight 74.5 kg (164 lb 3.2 oz) 07/14/2024 1:17 P M CDT Height 152.4 cm (5') 05/09/2024 8:38 AM TRADE SPECIALIST Body Mass Index 32.07 05/09/2024 8:38 AM TRADE SPECIALIST Plan of Treatment Health Maintenance Due Date Last Done Comments Zoster Vaccine (1 of 2) 2002 Pneumococcal vaccine <65 (3 of 3 - PPSV23, PCV20 or PCV21) 10/26/2023 10/25/2018, 11/19/2011 Regular Well Visit/Exam 18-64 09/01/2024 09/02/2023, 06/12/2021 Influenza Vaccine (Season Ended) 2024 Depression Screening 07/14/2025 07/14/2024, 05/09/2024, 01/05/2024, Additional history exists DTaP/Tdap/Td Vaccine (2 - Td or Tdap) 10/07/2026 10/07/2016 Hepatitis C Screening Completed 10/13/2022, 022 Hepatitis B Screening Completed 11/05/2022 Breast Cancer Screening-Mammogram Discontinued HPV Vaccines Aged Out No longer eligi ble based on patient's age to complete this topic Varicella Vaccines Discontinued Procedures Procedure Name Priority Date/Time Associated Diagnosis Comments HEPATITIS C ANTIBODY Routine 10/13/2022 3:59 AM CDT Rheumatoid arthritis of multiple sites with negative rheumatoid factor (HCC) Arthralgia, unspecified joint from Last 3 Months or Most Recently Relevant to Health Maintenance Results * Hepatitis C antibody (10/13/2022 3:59 AM CDT) Hep C Ab Nonreactive Nonreactive IVIS GARCIA Comment: Interpretive Data Nonreactive: Antibodies to HCV not detected. Does NOT exclude the possibility of recent exposure to HCV. Equivocal: Equivocal for HCV antibodies. Supplemental molecular testing will be automatically performed to determine infection status in accordance with current CDC screening recommendations. Reactive: Positive for HCV antibodies. This may represent current or past HCV infection. Supplemental molecular testing will be automatically performed to determine current infection status in accordance with current CDC screening recommendations. Interpretive data was last revised on 2019. Blood 10/13/2022 3:59 AM CDT 10/13/2022 8:54 PM CDT Atilio Abraham MD LAB MICROBIOLOGY - GENE [facility] ORDERABLES Final Result IVIS GARCIA [id number] Department of Laboratories [place], [place] [id number] from Last 3 Months or Most Recently Relevant to Health Maintenance Insurance [facility] CHOICE PLUS [facility] HMO/PPO Address: [place] [address] [facility] PLUS [facility]/PPO Address: [place] [address] [facility] CHOICE PLUS [facility] HMO/PPO Address: [facility] [address] [place] [address] Care Teams Assistant Women'S Tennis Coach Relationship Specialty Start Date End Date Jorge Rose MD PCP - General Family Medicine 06/12/21 Atilio Abraham MD Consulting Physician Rheumatology 01/20/23
--- OUTSIDE RECORDS SUMMARY | 2024-08-22 11:26 | XMS_ITS | Continuity of Care Document ---
Author Organization [facility] Address [address] [place] [address] [place] [address] Phone Care Team Providers Care Water Quality Technician Name Role Phone Mitchell Regalado MD Unavailable Unavailable Procedures Procedure Date Office/outpatient Visit, Est Office Consultation Advance Directives Directive Yes / No Effective Date File Name No Information Encounters Encounter Description Practice Location Reason(s) For Visit Diagnoses Date Provider Providers Copied on Encounter Office/outpat ient Visit, Est [facility], [address] [place] [address] [address], [place], [place], [id number], tel:[phone] SEC Ven[facility]io [place] Professional No Information 7 Sabine Medrano. [address] [facility] [place], [id number], [place]. tel:[phone] Office Consultation [facility], [address] [place] [address] [address], [place], [place], [id number], [phone] SEC Venanc[facility] [place] Professional No Information 7 Sabine Medrano. [address] [facility] [address], [place], [place], [id number], [place]. tel:[phone] Referring Provider: Reece Samano MD, [address], [place], [address]. tel:[phone] Family History Family Member Type Diagnosis Age At Onset No Information Payers Payer name Insurance type Covered democrat ID Authoriza tion(s) Medicaid [facility] [id number] Social History Type Description Quantity Date Captured Comments Sex Female Smoking Status No Information Chief Complaint And Reason For Visit No Information Reason For Referral Reason For Referral No Information History Of Present Illness Encounter Date Complaint History Of Prese nt Illness No Information Functional Status Date Functional Assessmen t No Information Instructions Date Instruction Additional Infor mation No Information Assessments Type Assessment Date No Information Patient Care Teams Name Effective Dates (start - stop) Status Members No Information
--- OUTSIDE RECORDS SUMMARY | 2024-08-22 11:26 | XMS_ITS | Referral Summary ---
Author Organization [facility] Address [address] [place] [address] Care Team Providers Care Air Conditioning Unit Tester Name Role Phone Jorge Rose MD Primary Care Provider Atilio Abraham MD Unavailable [phone] Encounters Date Type Department Care Team Description 07/14/2024 1:30 PM CDT Office Visit [facility] Rheumatology [address] [place] [address] [address] [place] [address] Inflammatory arthritis (Primary Dx); High risk medication use; Class 1 obesity due to excess calories with serious comorbidity and body mass index (BMI) of 31.0 to 31.9 in adult from Last 3 Months Allergies Active Allergy Reactions Criticality Noted Date Comments Codeine Other (See comments) Low 05/15/2019 Serotonin Syndrome Fentanyl Other (See comments) Low 05/15/2019 Serotonin Syndrome Cephalexin Other (See comments) Low 05/15/2019 Red Man Syndrome Levofloxacin Other (See comments) Low 05/15/2019 Red Man Syndrome Soper Swelling High 06/14/2021 Swelling of lips mouth [...] 1 tablet (100 mcg total) by mouth fish machine feeder before breakfast Take 1 by mouth fish machine feeder before breakfast 90 tablet 5 04/15/19 26 [...] Nasal saline spray (Simply saline, Little Remedies, [place], [place]) 2 second sprays or 2 squeezes into [...] 08/19/2021 Assessment & Plan (05/09/2024 8:56 AM BRUSH LOADER AND HANDLE ATTACHER): BP Readings from Last 3 Encounters: 05/09/24 [...] 06/27/2021 Assessment & Plan (04/21/2022 10:20 AM BRUSH LOADER AND HANDLE ATTACHER): - chronic, not at goal - had [...] closely at home - f/u up th me in 10 days Assessment & Plan (08/19/2021 [...] insurance Assessment & Plan (04/21/2022 10:18 AM BRUSH LOADER AND HANDLE ATTACHER): Wt Readings from Last 3 Encounters: 04/19/22 [...] 06/12/2021 Assessment & Plan (05/09/2024 8:57 AM BRUSH LOADER AND HANDLE ATTACHER): - chronic, not at goal - used [...] 09/18/2021 Assessment & Plan (05/04/2022 5:26 PM BRUSH LOADER AND HANDLE ATTACHER): - chronic, stable - had been off [...] results found for: TSH [facility] with negative rheumatoid factor 06/12/2021 Overview (05/09/2024): Follows with rheumathology Assessment & Plan (05/09/2024 8:57 AM BRUSH LOADER AND HANDLE ATTACHER): - chronic, not at goal - being [...] - follows with Dr. Ramos - her diesel engine tester, - recommend annual eye exams while on [...] - follows with Dr. Ramos - her diesel engine tester, recommend she discuss medication with me - [...] - follows with Dr. Ramos - her diesel engine tester, recommend she discuss medication with me - [...] review records from Dr. Ramos - her diesel engine tester - ordered some preliminary labs to review [...] therapy Assessment & Plan (05/04/2022 5:24 PM BRUSH LOADER AND HANDLE ATTACHER): - chronic issue, improved control - long [...] 07/28/2018 Assessment & Plan (05/09/2024 8:58 AM BRUSH LOADER AND HANDLE ATTACHER): - chronic, not at goal, persistent symptoms [...] 09/18/2021 Assessment & Plan (05/04/2022 5:23 PM BRUSH LOADER AND HANDLE ATTACHER): - chronic, not well controlled - no [...] issues and used to get steroid injections Immunizations Immunization Administration Dates Next Due Influenza, Unspecified 01/05/2024(Deferr ed: Patient Refused),12/22/2022(Deferred: Patient Refused - declined.),12/07/2020(Deferred: Patient Refused),12/08/2019(Deferred: Patient Refused) PPD TEST 10/30/2021 Pneumococcal Polysaccharide PPV23 10/25/2018 Tdap 10/07/2016 Social History Tobacco Use Types Packs/Day Years Used Date Smoking Tobacco: Never Passive Smoke Exposure: Never Smokeless Tobacco: Never Tobacco Cessation:Counseling Given: Not Answered Alcohol Use Standard Drinks/Week Comments Yes 0 (1 standard drink = 0.6 oz pur e alcohol) [facility] [employer] Answer Date Recorded In the past 12 months has [employer], [employer], oil, or water [employer] threatened to shut off services in your [...] week 07/14/2024 How often do you attend [facility] or religion services? More than 4 times per year 07/14/2024 Do you belong to any clubs o r organizations such as catholic groups, unions, fraternal or athletic groups, or [...] Recorded Patient Health Questionnaire-2 Score 2 07/14/2024 [facility] Occupat ional Health - Occupational Stress [...] place to sleep or slept in a usp (including now)? No 02/10/2023 Personal Safety Answer Date Recorded Getting School Help Needed Denies 04/12 Comments No Sex and Gender Information Value Date Recorded Sex Assigned at Not on file Legal Sex Female 10:17 AM CDT Gender Identity Not on file Sexual Orientation Not on file Last Filed Vital Signs Vital Sign Reading Time Taken Comments Blood Pressure 126/76 07/14/2024 1:17 PM CDT Pulse 86 07/14/2024 1:17 PM CDT Temperature 36.8 C (98.3 F) 07/14/2024 1:17 PM CDT Respiratory Rate 16 05/09/2024 8:38 AM BRUSH LOADER AND HANDLE ATTACHER Oxygen Saturation 100% 07/14/2024 1:17 PM CDT Inhaled Oxygen Concentration - - Weight 74.5 kg (164 lb 3.2 oz) 07/14/2024 1:17 P M CDT Height 152.4 cm (5') 05/09/2024 8:38 AM BRUSH LOADER AND HANDLE ATTACHER Body Mass Index 32.07 05/09/2024 8:38 AM BRUSH LOADER AND HANDLE ATTACHER Plan of Treatment Not on file Procedures Procedure Name Priority Date/Time Associated Diagnosis [...] Atilio Abraham MD LAB MICROBIOLOGY - GENE [facility] ORDERABLES Final Result IVIS [id number] [address] Department [place] [address] from Last 3 Months or Most Recently Relevant to Health Maintenance Insurance [facility] CHOICE PLUS [facility] CHOICE PLUS [place] [id number] [facility] CHOICE PLUS Care Teams Air Conditioning Unit Tester Relationship Specialty Start Date End Date Jorge Rose MD PCP - General Family Medicine 06/12/21 Atilio Abraham MD Consulting Physician Rheumatology 01/20/23
--- OUTSIDE RECORDS SUMMARY | 2024-08-22 11:26 | XMS_ITS | Clinical Summary ---
Author Organization [facility] Address [address] [place] [address] Care Team Providers Care Risk Control Field Representative Name Role Phone Rambo Giron MD Primary Care Provider [phone] Allergies Active Allergy Reactions Criticality Noted Date Comments Cephalexin Other (See Comments) 06/09/2016 Red man syndrome. Codeine Other (See Comments) 06/09/2016 Serotonin syndrome. Fentanyl Other (See Comments) 06/09/2016 Red man syndrome. Levofloxacin Other (See Comments) 06/09/2016 Red man syndrome. Tramadol Other (See Comments) 06/09/2016 Serotonin syndrome. Vancomycin Other (See Comments) 06/09/2016 Red man syndrome. Medications folic acid (FOLVITE) 1 mg tablet Take 1 mg by mouth daily. Active B infantis/B ani/B tomasz/B bifid (PROBIOTIC 4X ORAL) Take by mouth. Activ e hydroxychloroquine (PLAQUENIL) 200 mg tablet 2 12/08/19 19 Active predniSONE (DELTASONE) 10 mg tablet Take 1 Tablet (10 mg) by mouth see administration instructions. 6 x 1d. 5 x 1d. 4 x 1d. 3 x 1d. 2x 1d. 1x. 1d 21 Tablet 03/15/19 20 Active methotrexate, PF, (Rasuvo, PF,) 25 mg/0.5 mL Auto-Injector Inject 1 Dose by intramuscular injection every 7 days. 04/12/19 20 Active ondansetron (Zofran ODT) 8 mg Tablet, Rapid DissolveIndication s:Intractable vomiting with nausea, unspecified vomiting type Dissolve 1 tablet on top of tongue then swallow with saliva every 8 hours as needed for nausea or vomiting 60 Tablet 2 05/17/19 20 Active buPROPion HCL (WELLBUTRIN XL) 300 mg Extended Release 24 hour tabletIndications: MICHOACANO (generalized anxiety disorder) Take 1 Tablet (300 mg) by mouth daily in the morning. 90 Tablet 1 12/06/19 20 Active levothyroxine 50 mcg tabletIndications: Acquired hypothyroidism Take 1 tablet daily in the morning and take 2 tablets on Thursday or Thursday. 34 Tablet 2 03/05/20 20 Active phentermine (ADIPEX P) 37.5 mg tabletIndications: Overweight (BMI 25.0-29.9) Take 1 Tablet (37.5 mg) by mouth daily before breakfast. To obtain from pcp or new endo after this 90 Tablet 1 03/07/20 20 Active Active Problems Patient Care Coordination No te Formatting of this note migh t be different from the original. Prev 06/09/16 Problem Noted Date Diagnosed Date Positive LIAM (antinuclear antibody) 07/30/2018 Other specified hypothyroidism 07/28/2018 MICHOACANO (generalized anxiety disorder) 07/28/2018 Gluten intolerance 06/09/2016 Fibromyalgia 06/09/2016 Immunizations Immunization Administration Dates Next Due (ADACEL/BOOSTRIX)(10 YR UP) TDAP VACCINE, 0.5ML, IM 10/07/2016 (PNEUMOVAX 23)(50 YRS UP) PN EUMOCOCCAL POLYSACCHARIDE (PPV23) 0.5 ML, IM 10/25/2018 Family History Relation Name Status Comments Brother 1 Alive Brother 2 Alive Daughter 1 Alive Daughter 2 Alive Father Alive Maternal Grandfather Maternal Grandmother Mother Alive Paternal Grandfather Alive Paternal Grandmother Sister Alive Son Alive Social History Tobacco Use Types Packs/Day Years Used Date Smoking Tobacco: Former Cigarettes 1 5 Smokeless Tobacco: Never Tobacco Cessation:Counseling Given: No Alcohol Use Standard Drinks/Week Comments Yes 1 (1 standard drink = 0.6 oz pur e alcohol) Comments Unknown Sex and Gender Information Value Date Recorded Sex Assigned at Not on file Legal Sex Female 10:16 AM PIGMENT PROCESSOR Gender Identity Not on file Sexual Orientation Not on file Last Filed Vital Signs Vital Sign Reading Time Taken Comments Blood Pressure 120/86 02/17/2020 1:48 PM PIGMENT PROCESSOR Pulse 92 02/17/2020 1:48 PM PIGMENT PROCESSOR Temperature 36.8 C (98.3 F) 05/17/2019 11:53 AM CDT Respiratory Rate - - Oxygen Saturation 98% 02/17/2020 1:48 PM PIGMENT PROCESSOR Inhaled Oxygen Concentration - - Weight 70.8 kg (156 lb) 02/17/2020 1:48 PM PIGMENT PROCESSOR Height 154.9 cm (5' 1) 02/17/2020 1:48 PM PIGMENT PROCESSOR Body Mass Index 29.48 02/17/2020 1:48 PM PIGMENT PROCESSOR Plan of Treatment Health Maintenance Due Date Last Done Comments HEPATITIS B VACCINES (1 of 3 - 19+ 3-dose series) 2002 HPV/Cotest (21-29) 2004 CERVICAL CANCER SCREENING 2013 HPV/Cotest (30-65) 2013 PAP SMEAR 2013 INFLUENZA VACCINE (#1) 2023 Preventative Visit- Commercial 03/09/2024 11/29/2019, 07/28/2018, 10/28/2017, Additional history exists DTAP/TDAP/TD VACCINES (2 - Td or Tdap) 10/07/2026 10/07/2016 HPV VACCINES Aged Out No longer eligi ble based on patient's age to complete this topic Insurance [facility] [id number] Care Teams Risk Control Field Representative Relationship Specialty Start Date End Date Rambo Giron MD PCP - General Internal Medicine 05/21/16
--- OUTSIDE RECORDS SUMMARY | 2024-08-22 11:27 | XMS_ITS | Clinical Summary ---
Author Organization [facility] Address [address] [place] [address] Care Team Providers Care Filter Plant Operator Name Role Phone Jorge Rose MD Primary Care Provider Source Comments [facility],non-owned Affiliates and Associated Physician Practices is amultiple site organization consisting of ambulatory clinics and hospital sitesin [place], [place], [place] and [place]. This disclosure is being madepursuant to the Care Everywhere program and may not contain all information available regarding this patient. Last updated 17.[facility] Allergies Active Allergy Reactions Criticality Noted Date Comments Codeine Itching 09/14/2016 Serotonins syndrome Fentanyl Other 09/14/2016 serotonin syndrome Cephalexin Other 09/14/2016 Red man syndrome Levofloxacin Other 09/14/2016 Red tasha syndrome [place] Swelling High 06/14/2021 Swelling of lips mouth tongue /facial Tramadol Other 09/14/2016 serotonin syndrome Vancomycin Other 09/14/2016 Red tasha syndrome Medications * Be aware that medications may not be up to date on this document. Alwaysverify current medications with the patient. predniSONE (DELTASONE) 5 MG tablet 0 Active fluticasone propionate (FLONASE) 50 MCG/ACT nasal spray PRN 06/27/19 2 0 Active levothyroxine (SYNTHROID) 88 MCG tabletIndications:A cquired hypothyroidism Take 1 (one) tablet by mouth once daily 90 tablet 1 Active acetaminophen CR (TYLENOL ARTHRITIS PAIN) 650 MG tablet Take 1 tablet by mouth 2 times daily as needed Active Multiple Vitamin (MULTIVITAMIN ADULT PO) Take by mouth once daily Active Probiotic Product (PROBIOTIC DAILY) capsule Take by mouth once daily Active hydrOXYzine HCl (ATARAX) 25 MG tablet Take 1 (one) tablet by mouth 4 times daily as needed for Itching 30 tablet 2 Active clonazePAM (KLONOPIN) 0.5 MG tablet Take 0.5 mg by mouth once daily as needed 2 Active losartan-hydroCHLOR Othiazide (HYZAAR) 100-12.5 MG tablet Take 1 tablet by mouth once daily 2 Active propranolol (INDERAL) 10 MG tablet Take 20 mg by mouth 3 times daily as needed 2 Active Active Problems Problem Noted Date Diagnosed Date Hypertension, essential 08/19/2021 Overview (08/20/2021): Last Assessment & Plan: - recent diagnosis, better controlled but not at goal - currently on Losartan-HCTZ 100-12.5mg daily - add Amlodipine 5mg daily - continue current therapy - monitor BLOOD PRESSURE regularly at home - intermittent chest pain that is ongoing S/P total hysterectomy and bilateral salpingo-oo phorectomy 08/07/2021 Overview (08/20/2021): Last Assessment & Plan: - recently done by her OBGYN for menorrhagia with irregular cycle in 07/05/2021 Last Assessment & Plan: - recently done by her OBGYN for menorrhagia with irregular cycle in 07/05/2021 Status post laparoscopic hysterectomy 07/05/2021 Hypertriglyceridemia 07/04/2021 Overview (08/20/2021): Last Assessment & Plan: - New diagnosis 06/2021 - Discussed lifestyle management - Not on any medications - Body mass index is 34.67 kg/m . Lab Results Component Value Date TRIG 215 (H) 06/27/2021 Last Assessment & Plan: - New diagnosis 06/2021 - Discussed lifestyle management - Not on any medications - Body mass index is 34.67 kg/m?. Lab Results Component Value Date TRIG 215 (H) 06/27/2021 Vitamin D deficiency 07/04/2021 Overview (08/20/2021): Last Assessment & Plan: - recent diagnosis, not at goal - noted to have vitamin D deficiency on 06/2021 - most recent Vitamin D level is as shown below Vitamin D, 25-hydroxy Date Value Ref Range Status 06/27/2021 25 (L) 30 - 80 ng/mL Final - patient is started on Vitamin D supplementation - 5000IU D3 daily - continue current therapy Last Assessment & Plan: - recent diagnosis, not at goal - noted to have vitamin D deficiency on 06/2021 - most recent Vitamin D level is as shown below Vitamin D, 25-hydroxy Date Value Ref Range Status 06/27/2021 25 (L) 30 - 80 ng/mL Final - patient is started on Vitamin D supplementation - 5000IU D3 daily - continue current therapy Rheumatoid arthritis involving multiple sites Overview (06/12/2021): Last Assessment & Plan: - chronic, diagnosed over 5 years ago - has maternal history of Lupus, has personal concern for Lupus - currently on Celebrex 200 mg BID, Plaquenil 400 mg daily - has knees and hand pain, reports hand swelling, wrist pain and knuckles - will review records from Dr. Ramos - her quality assurance lead History of bilateral breast cancer 06/12/2021 Positive LIAM (antinuclear antibody) 07/30/2018 Other specified hypothyroidism 07/28/2018 MICHOACANO (generalized anxiety disorder) 07/28/2018 Gluten intolerance 06/09/2016 Fibromyalgia 06/09/2016 Asthma Overview (10/28/2017): history of Family history of breast cancer Immunizations Immunization Administration Dates Next Due PNEUMOCOCCAL PPSV23 10/25/2018 TDAP (7yrs+) 10/07/2016 Family History Medical History Relation Name Comments Cancer - Breast Maternal Aunt 3 aunts and 4 great aunts. Cancer - Breast Maternal Grandmother Cancer - Breast Mother also ovarian ca but not sure if second primary or met Diabetes - Type 2 Mother Hypertension Mother Cancer - Breast Paternal Grandmother Relation Name Status Comments Maternal Aunt Maternal Grandmother Mother Paternal Grandmother Social History Tobacco Use Types Packs/Day Years Used Date Smoking Tobacco: Never Smokeless Tobacco: Never Tobacco Cessation:Counseling Given: No Alcohol Use Standard Drinks/Week Comments Yes 0 (1 standard drink = 0.6 oz pur e alcohol) monthly AUDIT-C Answer Date Recorded Q1: How often do you have a drink containing alc ohol? Never 08/07/2021 Average Number of Drinks Not on file 022 Frequency of Binge Drinking Not on file 03/2021 PHQ-2 Answer Date Recorded PHQ2 TOTAL SCORE 0 06/12/2021 Comments No Sex and Gender Information Value Date Recorded Sex Assigned at Not on file Legal Sex Female 12:20 PM CDT Gender Identity Not on file Sexual Orientation Not on file Last Filed Vital Signs Vital Sign Reading Time Taken Comments Blood Pressure 150/95 08/20/2021 10:57 AM CDT Pulse 69 08/20/2021 10:57 AM CDT Temperature 36.8 C (98.2 F) 08/07/2021 6:04 PM CDT Respiratory Rate 18 08/07/2021 6:04 PM CDT Oxygen Saturation 99% 08/07/2021 6:04 PM CDT Inhaled Oxygen Concentration - - Weight 79.4 kg (175 lb) 08/20/2021 10:57 AM CDT Height 157.5 cm (5' 2) 08/20/2021 10:57 AM CDT Body Mass Index 32.01 08/20/2021 10:57 AM CDT Plan of Treatment Health Maintenance Due Date Last Done Comments LIPID TESTING 1983 MAMMOGRAM 1983 HIV SCREENING 1998 HEPATITIS C SCREENING 04/21/2001 HEPATITIS B VACCINE (1 of 3 - 19+ 3-dose series) 2002 PNEUMOCOCCAL VACCINE (2 of 2 - PCV) 10/26/2019 10/25/2018 COVID-19 VACCINE (2023-2 5 season) 2023 DEPRESSION SCREENING 03/09/2024 06/12/2021 INFLUENZA VACCINE (Season Ended) 2024 PAP with HPV 11/28/2024 11/29/2019 DTAP/TDAP/TD VACCINES (2 - T d or Tdap) 10/07/2026 10/07/2016 ZOSTER VACCINE (1 of 2) 2033 HIB VACCINE Aged Out No longer eligi ble based on patient's age to complete this topic HPV VACCINE Aged Out No longer eligi ble based on patient's age to complete this topic MENINGOCOCCAL (Group B) VACC INE SHARED DECISION-MAKING Aged Out No longer eligibl e based on patient's age to complete this topic MENINGOCOCCAL GROUPS A/C/Y/W VACCINE Aged Out No longer eligible b ased on patient's age to complete this topic Procedures Procedure Name Priority Date/Time Associated Diagnosis Comments PAP IG LB+HPV APTIMA Routine 11/29/2019 2:28 PM CDT Well woman exam from Last 3 Months or Most Recently Relevant to Health Maintenance Results * PAP IG LB+HPV APTIMA (11/29/2019 2:28 PM CDT) Diagnosis [facility] ACCOUNT BILL Comment:NEGATIVE FOR INTRAEP ITHELIAL LESION OR MALIGNANCY. Specimen Adequacy [facility] ACCOUNT BILL Comment: Satisfactory for evaluation. Endocervical and/or squamous metaplastic cells (endocervical component) are present. Clinician Provided ICD10 [facility] ACCOUNT BILL Comment: Z01.419 Z85.3 Performed by [facility] ACCOUNT BILL Comment:China Otoole, Cytot echnologist (ASCP) Comment . [facility] ACCOUNT BILL Note [facility] ACCOUNT BILL Comment: The Pap smear is a screening test designed to aid in the detection of premalignant and malignant conditions of the uterine cervix. It is not a diagnostic procedure and should not be used as the sole means of detecting cervical cancer. Both false-positive and false-negative reports do occur. . IGLBP CPT Code Automation [facility] ACCOUNT BILL Comment: This liquid based ThinPrep(R) pap test was screened with the use of an image guided system. Human papillomavirus Aptima Negative Negative [facility] ACCOUNT BILL Comment: This nucleic acid amplification test detects fourteen high-risk HPV types (16,18,31,33,35,39,45,51,52,56,58,59,66,68) without differentiation. PART OF UTERINE CERVIX / Unknown 11/29/2019 2:28 PM CDT 11/29/2019 Narrative [facility] ACCOUNT BILL - 12/02/2019 5:08 PM CDT No. of containers..01 ThinPrep Vial Resulting Agency Comment Lab Testing performed at: [facility] [id number] Joya Ortiz MD LAB - PATHOLOGY/CYTOLOGY OR DERABLES Final Result [facility] ACCOUNT BILL [id number] [place] [address] from Last 3 Months or Most Recently Relevant to Health Maintenance Insurance [facility] [place] [id number] Care Teams Filter Plant Operator Relationship Specialty Start Date End Date Jorge Rose MD PCP - General Family Medicine 06/14/21
--- OUTSIDE RECORDS SUMMARY | 2024-08-22 11:27 | XMS_ITS | Continuity of Care Document ---
Author Organization [facility] Address [address] [place] [address] Phone Care Team Providers Care Hardware Technician Name Role Phone No Information Unavailable Unavailable Advance Directives Directive Yes / No Effective Date File Name No Information Encounters Encounter Description Practice Location Reason(s) For Visit Diagnoses Date Provider Providers Copied on Encounter Medical [facility], [address], [place], [place], [id number], [place] tel:[phone] No Information No Information Family History Family Member Type Diagnosis Age At Onset No Information Payers Payer name Insurance type Covered libertarian ID Authoriza tion(s) No Information Social History Type Description Quantity Date Captured [...]
--- OUTSIDE RECORDS SUMMARY | 2024-08-22 11:28 | XMS_ITS | Continuity of Care Document ---
Author Organization [facility] Address [address] [place] [address] Phone Care Team Providers Care Casket Liner Name Role Phone No Information Unavailable Unavailable Advance Directives Directive Yes / No Effective Date File Name No Information Encounters Encounter Description Practice Location Reason(s) For Visit Diagnoses Date Provider Providers Copied on Encounter Medical [facility], [address], [place], [place], [id number], [place] tel:[phone] No Information No Information Family History Family Member Type Diagnosis Age At Onset No Information Payers Payer name Insurance type Covered alliance party ID Authoriza tion(s) No Information Social History [...]
--- OUTSIDE RECORDS SUMMARY | 2024-08-22 11:28 | XMS_ITS | Continuity of Care Document ---
Author Organization [facility] Address [address] [place] [address] [place] [address] Phone Care Team Providers Care Mixed Livestock Farm Worker Name Role Phone Mitchell Regalado MD Unavailable Unavailable Procedures Procedure Date Office/outpatient Visit, Est Office Consultation Advance Directives Directive Yes / No Effective Date File Name No Information Encounters Encounter Description Practice Location Reason(s) For Visit Diagnoses Date Provider Providers Copied on Encounter Office/outpat ient Visit, Est [facility], [address] [place] [address] [address], [place], [place], [id number], tel:[phone] [place] Professional No Information [address] Sabine Medrano. [address] [place], [id number], [place]. tel:[phone] Office Consultation [facility], [address] [place] [address] [address], [place], [place], [id number], [phone] SEC [place] Professional No Information 7 Sabine Medrano. [address], [place], [place], [id number], [place]. tel:[phone] Referring Provider: Reece Samano MD, [address], [place], [address]. tel:[phone] Family History Family Member Type Diagnosis Age At Onset No Information Payers Payer name Insurance type Covered constitution party ID Authoriza tion(s) Medicaid [facility] [id number] Social History Type Description Quantity Date Captured [...]
== END 2024-08-22 11:35 | disposition home or self-care (01) ==
PROVIDERS: Emergency Provider Nurse Practitioner Family; PCP Family Medicine
DX: J06.9 Acute upper respiratory infection, unspecified (principal); R05.9 Cough, unspecified; E03.9 Hypothyroidism, unspecified; I10 Essential (primary) hypertension; M32.9 Systemic lupus erythematosus, unspecified; Z85.3 Personal history of malignant neoplasm of breast; Z90.13 Acquired absence of bilateral breasts and nipples
CPT/HCPCS: 99211; G0463